=== PATIENT | male | born 1955 | race Caucasian/White ===

== ENCOUNTER 2023-09-30 09:42 | Outpatient (OUT) | payer MEDICARE, SELFPAY ==
[2023-09-30 10:51] LABS: Alanine Aminotransferase 27 U/L (16-63); Albumin Globulin Ratio 1.3; Albumin Level 3.7 g/dL (3.4-5.0); Alkaline Phosphatase 53 U/L (46-116); Anion Gap 13.1; Aspartate Amino Transferase 19 U/L (15-37); BUN Creatinine Ratio 18.8; Bilirubin Total 0.8 mg/dL (0.2-1.0); Carbon Dioxide 26.1 mmol/L (21.0-32.0); Chloride 102 mmol/L (98-107); Chol HDL Ratio 2.5; Cholesterol 167 mg/dL (<=200); Estimated GFR (African America >60 (>=60); Estimated GFR (Non-African Ame >60 (>=60); Free T3 3.05 pg/mL (2.18-3.98); Globulin 2.9 g/dL; Glucose 123 mg/dL (74-106); HDL Cholesterol 66 mg/dL (40-60); Potassium 4.2 mmol/L (3.5-5.1); Sodium 137 mmol/L (136-145); Total Protein 6.6 g/dL (6.4-8.2); Triglycerides 64 mg/dL (<=150); VLDL CHOLESTEROL 12.8 mg/dL
[2023-09-30 10:58] LABS: Basophils Absolute Auto 0.1 10^3/uL (0.0-0.1); Eosinophils Absolute Auto 0.1 10^3/uL (0.0-0.7); Eosinophils Percent Auto 2.2 % (0.9-7.0); Hematocrit 40.6 % (42.0-54.0); Immature Granulocytes Abs Auto 0.01 10^3/uL (0.00-0.03); Immature Granulocytes Pct Auto 0.2 % (0.0-0.5); Lymphocytes Absolute Auto 1.7 10^3/uL (1.2-3.8); Lymphocytes Percent Auto 34.3 % (20.5-60.0); Mean Corpuscular HGB Conc 34.5 g/dL (29.9-35.2); Mean Platelet Volume 11.1 fL (9.5-13.5); Monocytes Absolute Auto 0.4 10^3/uL (0.3-0.8); Monocytes Percent Auto 8.2 % (1.7-12.0); Neutrophils Absolute Auto 2.7 10^3/uL (1.4-6.5); Neutrophils Percent Auto 54.1 % (43.0-75.0); Platelet Count 227 10^3/uL (150-450); Red Blood Count 4.51 10^6/uL (4.70-6.10); Red Cell Distribution Width 12.3 % (11.0-15.0); White Blood Count 4.9 10^3/uL (4.0-11.0)
[2023-09-30 11:31] LABS: Prostate Specific Antigen Scrn 2.09 ng/mL (<=4.00)
[2023-09-30 11:33] LABS: Estimated Average Glucose 117 mg/dL; Glycohemoglobin A1C 5.7 % (4.5-6.2)
== END 2023-09-30 09:43 | disposition home or self-care (01) ==
LOC: LAB 09:46
PROVIDERS: PCP Family Medicine; Visit Provider Family Medicine
DX: E78.5 Hyperlipidemia, unspecified (principal); R73.09 Other abnormal glucose; Z12.5 Encounter for screening for malignant neoplasm of prostate; I10 Essential (primary) hypertension
CPT/HCPCS: 36415; 80053; 80061; 83036; 84436; 84443; 84481; 85025; G0103

== ENCOUNTER 2023-12-16 23:30 | Emergency (ER) | payer MEDICARE, SELFPAY ==
[2023-12-16 23:40] VITALS: BP 169/96; PULSE 68; TEMP 36.5; O2SAT 99; BMI 26.7
--- NOTE | 2023-12-16 23:57 | CT_ITS ---
[address] [address] Patient Name: TYLER DALE MRN: [id number] date: 1955 Sex: M Assigned Patient Location: ER Current Patient Location: Accession/Order Number: [id number] Exam Date: 12/16/2023 23:59 Report Date: 12/17/2023 00:40 At the request of: ATTILA MCLEAN Procedure: CT abdomen pelvis wo con EXAM: CT abdomen pelvis wo con HISTORY: left flank pain, r/o stone COMPARISON: None. TECHNIQUE: CT of the abdomen and pelvis without intravenous contrast. Dose reduction techniques were achieved by using automated exposure control and/or adjustment of mA and/or kV according to patient size and/or use of iterative reconstruction technique. FINDINGS: Limited evaluation of the viscera/organs and vasculature without intravenous contrast. TUBES AND IMPLANTS: None. LOWER CHEST: Small hiatal hernia ABDOMEN and PELVIS ABDOMINAL WALL AND SOFT TISSUES: Unremarkable. BONES: No suspicious lesions. Multilevel degenerative changes of the spine. ARTERIES: Incompletely evaluated. Severe ostial calcifications of the celiac trunk with likely severe stenosis . Poststenotic dilatation measuring 1 centimeter. No aortoiliac aneurysm VEINS: Incompletely evaluated. LYMPH NODES: Unremarkable. PERITONEUM/ RETROPERITONEUM: Unremarkable. BOWEL: No obstruction. Mild diverticulosis APPENDIX: Unremarkable LIVER: No suspicious lesions GALLBLADDER: Multiple layering gallstones without wall thickening or pericholecystic fluid BILE DUCTS: Not dilated SPLEEN: Unremarkable. PANCREAS: Unremarkable. ADRENALS: Unremarkable. KIDNEYS/ URETERS: Moderate left hydronephrosis and hydroureter secondary to a 7 millimeter proximal ureteral stone. Punctate bilateral nonobstructing renal calculi. REPRODUCTIVE ORGANS: Unremarkable URINARY BLADDER: Moderate to severe dilatation of the bladder. CT/CT abdomen pelvis wo con IMPRESSION: 1. Moderate left hydronephrosis and hydroureter secondary to a 7 millimeter proximal ureteral stone. Punctate bilateral nonobstructing renal calculi. 2. Moderate to severe dilatation of the bladder. 3. Cholelithiasis. 4. Mild diverticulosis. 5. [place] ostial calcification of the celiac trunk with likely severe stenosis . Poststenotic dilatation measuring 1 centimeter. 6. Small hiatal hernia. Electronically authenticated by: KARO BERG Date: 12/17/2023 00:40
[2023-12-17 00:15] LABS: Basophils Absolute Auto 0.1 10^3/uL (0.0-0.1); Basophils Percent Auto 0.6 % (0.2-2.0); Eosinophils Absolute Auto 0.1 10^3/uL (0.0-0.7); Eosinophils Percent Auto 0.7 % (0.9-7.0); Hematocrit 39.7 % (42.0-54.0); Hemoglobin 13.7 g/dL (14.0-18.0); Immature Granulocytes Abs Auto 0.03 10^3/uL (0.00-0.03); Immature Granulocytes Pct Auto 0.2 % (0.0-0.5); Lymphocytes Absolute Auto 1.3 10^3/uL (1.2-3.8); Lymphocytes Percent Auto 9.9 % (20.5-60.0); Mean Corpuscular HGB Conc 34.5 g/dL (29.9-35.2); Mean Corpuscular Hemoglobin 31.9 pg (25.9-34.0); Mean Corpuscular Volume 92.3 fL (80.0-94.0); Monocytes Absolute Auto 0.8 10^3/uL (0.3-0.8); Monocytes Percent Auto 6.4 % (1.7-12.0); Neutrophils Absolute Auto 10.5 10^3/uL (1.4-6.5); Neutrophils Percent Auto 82.2 % (43.0-75.0); Platelet Count 209 10^3/uL (150-450); Red Cell Distribution Width 12.5 % (11.0-15.0); White Blood Count 12.7 10^3/uL (4.0-11.0)
--- OUTSIDE RECORDS SUMMARY | 2023-12-17 00:15 | XMS_ITS | CCD ---
Author Organization [facility] Care Team Providers Care Center Administrator Name Role Phone Alejandro Santoro Unavailable JOEY, DR MEHTA Attending Unavailable JOEY, DR MEHTA Consulting Unavailable JOEY, DR MEHTA Primary Care Unavailable JOEY, DR MEHTA Admitting Unavailable JOEY, DR MEHTA Referring Unavailable MILAY, DR MEHTA Attending Unavailable JOEY, DR MEHTA Consulting Unavailable JOEY, DR MEHTA Primary Care Unavailable JOEY, DR MEHTA Admitting Unavailable JOEY, DR MEHTA Attending Unavailable JOEY, DR MEHTA Consulting Unavailable JOEY, DR MEHTA Primary Care Unavailable JOEY, DR MEHTA Admitting Unavailable Medications Current Medications Medication Drug Class(es) Dates Sig (Normalized) Sig (Original) lisinopril 40 mg oral tablet (1 source) Angiotensin Converting Enzyme Inhibitor Lisinopril 40 MG Orally Once a day Active losartan potassium 25 mg oral tablet (1 source) Angiotensin 2 Receptor Joey Losartan Potassium 25 MG Orally Active Problems Active Problems Problem Classification Problem Date Documented Da te Episodic/Chronic Diabetes mellitus without complication (1 source) Other abnormal glucose; Translations: [OTHER ABNORMAL GLUCOSE] Onset: 05-10-2022 Episodic Disorders of lipid metabolism (1 source) Hyperlipidemia, unspecified; Translations: [HYPERLIPIDEMIA UNSPECIFIED] Onset: 05-10-2022 Chronic Essential hypertension (5 sources) Essential (primary) hypertension; Translations: [ESSENTIAL PRIMARY HYPERTENSION] Onset: 05-05-2022 Chronic Other nutritional; endocrine; and metabolic disorders (1 source) Overweight; Translations: [OVERWEIGHT] Onset: 05-10-2022 Episodic Other screening for suspected conditions (not mental disorders or infectious disease) (6 sources) Encounter for screening for malignant neoplasm of rectum; Translations: [Encounter for screening for malignant neoplasm of prostate] Onset: 05-06-2022 Episodic Unclassified (3 sources) CONTACT W/AND (SUSP) EXPOS COVID-19; Translations: [CONTACT W/AND (SUSP) EXPOS COVID-19] Onset: 07-03-2021 Past or Other Problems Problem Classification Problem Date Documented Da te Episodic/Chronic Sprains and strains (1 source) Strain of muscle, fascia and tendon of other parts of biceps, right arm, initial encounter Onset: 03-28-2021 Resolved: 03-28-2021 Episodic Unclassified (1 source) CONTACT W/AND (SUSP) EXPOS COVID-19; Translations: [CONTACT W/AND (SUSP) EXPOS COVID-19] Onset: 07-01-2021 Results Test Name Value Interpretation Reference Range Facil ity INSULINon 05-06-2022 Insulin 17.3 uIU/mL Normal 2.6-24.9 [facility] Comment on above: Performed By: #### I NSULIN #### [facility] [address] [place] [address] Dr. Carleen Garvey CBC AUTO DIFFon 05-05-2022 BASO # 0.1 103/ul Normal 0.0-0.1 [facility] Comment on above: Performed By: #### C BC #### [facility] [address] [place] [address] Dr. Carleen Garvey Basophils/100 WBC (Bld) 1.0 % Normal 0.2-2.0 [facility] Comment on above: Performed By: #### C BC #### [facility] [address] [place] [address] Dr. Carleen Garvey EO # 0.3 103/ul Normal 0.0-0.7 [facility] Comment on above: Performed By: #### C BC #### [facility] [address] [place] [address] Dr. Carleen Garvey Eosinophils/100 WBC (Bld) 4.9 % Normal 0.9-7.0 [facility] Comment on above: Performed By: #### C BC #### [facility] [address] [place] [address] Dr. Carleen Garvey Erythrocyte distribution width (RBC) [Ratio] 12.6 % Normal 11.0-15.0 [facility] Comment on above: Performed By: #### C BC #### [facility] [address] [place] [address] Dr. Carleen Garvey Hematocrit (Bld) [Volume fraction] 42.7 % Normal 42.0-54.0 [facility] Comment on above: Performed By: #### C BC #### [facility] [address] [place] [address] Dr. Carleen Garvey Hemoglobin (Bld) [Mass/Vol] 14.7 g/dL Normal 14.0-18.0 [facility] Comment on above: Performed By: #### C BC #### [facility] [address] [place] [address] Dr. Carleen Garvey IG # 0.01 10e3/ul Normal 0.00-0.03 [facility] Comment on above: Performed By: #### C BC #### [facility] [address] [place] [address] Dr. Carleen Garvey IG % 0.2 % Normal 0.0-0.5 [facility] Comment on above: Performed By: #### C BC #### [facility] [address] [place] [address] Dr. Carleen Garvey LYMPH # 1.6 103/ul Normal 1.2-3.8 [facility] Comment on above: Performed By: #### C BC #### [facility] [address] [place] [address] Dr. Carleen Garvey Lymphocytes/100 WBC (Bld) 29.5 % Normal 20.5-60.0 [facility] Comment on above: Performed By: #### C BC #### [facility] [address] [place] [address] Dr. Carleen Garvey MANUAL DIFF REQ NO Normal [facility] Comment on above: Performed By: #### C BC #### [facility] [address] [place] [address] Dr. Carleen Garvey MCH (RBC) [Entitic mass] 30.5 pg Normal 25.9-34.0 [facility] Comment on above: Performed By: #### C BC #### [facility] [address] [place] [address] Dr. Carleen Garvey MCHC (RBC) [Mass/Vol] 34.4 g/dL Normal 29.9-35.2 [facility] Comment on above: Performed By: #### C BC #### [facility] [address] [place] [address] Dr. Carleen Garvey MCV (RBC) [Entitic vol] 88.6 fL Normal 80.0-94.0 [facility] Comment on above: Performed By: #### C BC #### [facility] [address] [address] [address] Carleen Garvey MONO # 0.5 103/ul Normal 0.3-0.8 [facility] Comment on above: Performed By: #### C BC #### [facility] [address] [place] [address] Dr. Carleen Garvey Monocytes/100 WBC (Bld) 9.7 % Normal 1.7-12.0 [facility] Comment on above: Performed By: #### C BC #### [facility] [address] [place] [address] Dr. Carleen Garvey NEUT # 2.9 103/ul Normal 1.4-6.5 [facility] Comment on above: Performed By: #### C BC #### [facility] [address] [place] [address] Dr. Carleen Garvey Neutrophils/100 WBC (Bld) 54.7 % Normal 43.0-75.0 [facility] Comment on above: Performed By: #### C BC #### [facility] [address] [place] [address] Dr. Carleen Garvey Platelet mean volume (Bld) [Entitic vol] 10.3 fL Normal 9.5-13.5 [facility] Comment on above: Performed By: #### C BC #### [facility] [address] [place] [address] Dr. Carleen Garvey PLT 258 103/ul Normal 150-450 [facility] Comment on above: Performed By: #### C BC #### [facility] [address] [place] [address] Dr. Carleen Garvey RBC 4.82 106/ul Normal 4.70-6.10 [facility] Comment on above: Performed By: #### C BC #### [facility] [address] [address] [address] Carleen Garvey WBC 5.3 103/ul Normal 4.0-11.0 [facility] Comment on above: Performed By: #### C BC #### [facility] [address] [address] [address] Carleen Garvey GLYCOHEMOGLOBIN A1Con 2021 ADA RECOMMENDATION SEE BELOW Normal [facility] Comment on above: Result Comment: ADA RECOMMENDED LIMIT 4.0 - 6.0 ADA THERAPEUTIC TARGET < 7.0 ACTION SUGGESTED > 7.0 Performed By: #### A 1C #### [facility] [address] [place] [address] Dr. Carleen Garvey Glucose [Mass/Vol] 114 mg/dL Normal [facility] Comment on above: Performed By: #### A 1C #### [facility] [address] [place] [address] Dr. Carleen Garvey HbA1c (Bld) [Mass fraction] 5.6 % Normal 4.5-6.2 [facility] Comment on above: Performed By: #### A 1C #### [facility] [address] [place] [address] Dr. Carleen Garvey LIPID PROFILEon 05-05-2022 CHOL-HDL RATIO NORM SEE BELOW Normal [facility] Comment on above: Result Comment: 3.3 - 4.4 LOW RISK 4.4 - 7.1 AVERAGE RISK 7.1 - 11.0 MODERATE RISK >11.0 HIGH RISK Performed By: #### C MP, URIC, LIPID #### [facility] [address] [address] [address] Carleen Garvey Cholesterol [Mass/Vol] 172 mg/dL Normal <=200 [facility] Comment on above: Performed By: #### C MP, URIC, LIPID #### [facility] [address] [place] [address] Dr. Carleen Garvey Cholesterol in HDL [Mass/Vol] 61 mg/dL Critically high 40-60 [facility] Comment on above: Performed By: #### C MP, URIC, LIPID #### [facility] [address] [address] [address] Carleen Garvey Cholesterol in LDL [Mass/Vol] 83.4 mg/dL Normal [facility] Comment on above: Performed By: #### C MP, URIC, LIPID #### [facility] [address] [address] [address] Carleen Garvey Cholesterol.total/Cho lesterol in HDL [Mass ratio] 2.8 {ratio} Normal [facility] Comment on above: Performed By: #### C MP, URIC, LIPID #### [facility] [address] [address] [address] Carleen Garvey HDL NORMAL > or = 60 mg/dl - LOW CARDIOVASCULAR RISK <40 mg/dl - HIGH CARDIOVASCULAR RISK Normal [facility] Comment on above: Performed By: #### C MP, URIC, LIPID #### [facility] [address] [address] [address] Carleen Garvey LDL CALC NORMAL SEE BELOW Normal [facility] Comment on above: Result Comment: <100 mg/dl OPTIMAL 100 - 129 mg/dl NEAR OR ABOVE OPTIMAL 130 - 159 mg/dl BORDERLINE HIGH 160 - 189 mg/dl HIGH >190 mg/dl VERY HIGH Performed By: #### C MP, URIC, LIPID #### [facility] [address] [address] [address] Carleen Garvey Triglyceride [Mass/Vol] 138 mg/dL Normal <=150 [facility] Comment on above: Performed By: #### C MP, URIC, LIPID #### [facility] [address] [address] [address] Carleen Garvey VLDL CALC 27.6 mg/dL Normal [facility] Comment on above: Performed By: #### C MP, URIC, LIPID #### [facility] [address] [address] [address] Carleen Garvey OCC BLD IMMUNO SCREENon 04-24 OCCULT BLOOD Negative Normal NEGATIVE [facility] Comment on above: Performed By: #### O BSCRN #### [facility] [address] [address] [address] Carleen Garvey PROF 14(COMP METB)on 022 Albumin [Mass/Vol] 3.9 g/dL Normal 3.4-5.0 [facility] Comment on above: Performed By: #### C MP, URIC, LIPID #### [facility] [address] [address] [address] Carleen Garvey Albumin/Globulin [Mass ratio] 1.2 {ratio} Normal [facility] Comment on above: Performed By: #### C MP, URIC, LIPID #### [facility] [address] [address] [address] Carleen Garvey ALP [Catalytic activity/Vol] 54 U/L Normal 46-116 [facility] Comment on above: Performed By: #### C MP, URIC, LIPID #### [facility] [address] [place] [address] Dr. Carleen Garvey ALT [Catalytic activity/Vol] 24 U/L Normal 16-63 [facility] Comment on above: Performed By: #### C MP, URIC, LIPID #### [facility] [address] [address] [address] Carleen Garvey Anion gap [Moles/Vol] 13.4 mmol/L Normal [facility] Comment on above: Performed By: #### C MP, URIC, LIPID #### [facility] [address] [address] [address] Carleen Garvey AST [Catalytic activity/Vol] 18 U/L Normal 15-37 [facility] Comment on above: Performed By: #### C MP, URIC, LIPID #### [facility] [address] [address] [address] Carleen Garvey Bilirubin [Mass/Vol] 0.6 mg/dL Normal 0.2-1.0 [facility] Comment on above: Performed By: #### C MP, URIC, LIPID #### [facility] [address] [address] [address] Carleen Garvey Calcium [Mass/Vol] 8.9 mg/dL Normal 8.5-10.1 [facility] Comment on above: Performed By: #### C MP, URIC, LIPID #### [facility] [address] [address] [address] Carleen Garvey Chloride [Moles/Vol] 101 mmol/L Normal 98-107 [facility] Comment on above: Performed By: #### C MP, URIC, LIPID #### [facility] [address] [address] [address] Carleen Garvey CO2 [Moles/Vol] 26.1 mmol/L Normal 21.0-32.0 [facility] Comment on above: Performed By: #### C MP, URIC, LIPID #### [facility] [address] [address] [address] Carleen Garvey Creatinine [Mass/Vol] 1.20 mg/dL Normal 0.70-1.30 [facility] Comment on above: Performed By: #### C MP, URIC, LIPID #### [facility] [address] [address] [address] Carleen Garvey EGFR-AF IRISH >60 Normal >=60 [facility] Comment on above: Performed By: #### C MP, URIC, LIPID #### [facility] [address] [address] [address] Carleen Garvey EGFR-NON AF IRISH =60 Normal >=60 [facility] Comment on above: Performed By: #### C MP, URIC, LIPID #### [facility] [address] [address] [address] Carleen Garvey Globulin (S) [Mass/Vol] 3.3 g/dL Normal [facility] Comment on above: Performed By: #### C MP, URIC, LIPID #### [facility] [address] [address] [address] Carleen Garvey Glucose [Mass/Vol] 125 mg/dL Critically high 74-106 [facility] Comment on above: Performed By: #### C MP, URIC, LIPID #### [facility] [address] [address] [address] Carleen Garvey Potassium [Moles/Vol] 4.5 mmol/L Normal 3.5-5.1 [facility] Comment on above: Performed By: #### C MP, URIC, LIPID #### [facility] [address] [place] [address] Dr. Carleen Garvey Protein [Mass/Vol] 7.2 g/dL Normal 6.4-8.2 [facility] Comment on above: Performed By: #### C MP, URIC, LIPID #### [facility] [address] [place] [address] Dr. Carleen Garvey Sodium [Moles/Vol] 136 mmol/L Normal 136-145 [facility] Comment on above: Performed By: #### C MP, URIC, LIPID #### [facility] [address] [place] [address] Dr. Carleen Garvey Urea nitrogen [Mass/Vol] 20.0 mg/dL Critically high 7.0-18.0 [facility] Comment on above: Performed By: #### C MP, URIC, LIPID #### [facility] [address] [place] [address] Dr. Carleen Garvey Urea nitrogen/Creatinine [Mass ratio] 16.7 mg/mg Normal [facility] Comment on above: Performed By: #### C MP, URIC, LIPID #### [facility] [address] [place] [address] Dr. Carleen Garvey URIC ACID SERUMon 05-05-2022 Urate [Mass/Vol] 6.9 mg/dL Normal 3.5-7.2 [facility] Comment on above: Performed By: #### C MP, URIC, LIPID #### [facility] [address] [place] [address] Dr. Carleen Garvey [facility]on SARS-CoV-2 (COVID-19) RNA JOHANNY+probe Ql (Unsp spec) Not detected Normal NOT DETECTED [facility] Comment on above: Result Comment: This test is not yet approved or cleared by the [place] FDA. When there are no FDA-approved or cleared tests available, and other criteria are met, FDA can make tests available under an emergency access mechanism called an Emergency Use Authorization (EUA). The EUA for this test is supported by the [employer] Associate of Health and Human Service's (HHS's) declaration that circumstances exist to justify the emergency use of in vitro diagnostics for the detection and/or diagnosis of the virus that causes COVID-19. This EUA will remain in effect (meaning this test can be used) for the duration of the COVID-19 declaration justifying emergency of IVDs, unless it is terminated or revoked by FDA (after which the test may no longer be used). When diagnostic testing is negative, the possibility of a false negative should be considered in the context of a patient's recent exposures and the presence of clinical signs and symptoms consistent with SARS-CoV-2. Performed By: #### C [facility] #### [facility] [address] [place] [address] Dr. Carleen Garvey Vital Signs Date Time Vital Sign Value Performing Clinician Faci lity 03-28-2021 16:30-0400 Body height 182.88 cm Alejandro Santoro Other [facility] Other 03-28-2021 16:30-0400 Body mass index (BMI) [Ratio] 28.26 kg/m2 Alejanrdo Santoro Other [facility] Other 03-28-2021 16:30-0400 Body weight 94.53 kg Alejandro Santoro Other [facility] Other Encounters Encounter Date Encounter Type Care Provider Facility Start: 05-06-2022 End: 05-06-[address] JANINE COOK Facility:[facility] Start: 05-05-2022 End: 05-06-[address] JANINE COOK Facility:[facility] Start: 07-01-2021 End: 07-01-[address] JANINE COOK Facility:[facility] Start: 03-28-2021 End: 03-28-2021 ambulatory Alejandro Santoro Other [facility] Other Start: 03-28-2021 Office outpatient ne w 30 minutes Alejandro Santoro [facility] Procedures Date Procedure Procedure Detail Performing Clinician Start: 05-05-[address] DANII COOK Comment on above: Performed By: #### P [facility] #### [facility] [address] [address] [address] Carleen Garvey Payers Date Payer Category Payer Medicare [id number] 1955 Unknown [id number] [id number] [id number] 1955 Unknown [id number] [id number] [id number] 1955 Unknown [id number] [id number] Medicare [id number] 2.1 [id number] Unknown [id number] 2. [id number] Social History Date Type Detail Facility Unknown if ever smoked [facility] Other Sex Assigned At Sex Assigned At Bir th [facility] Other Evaluation note 03-28-2021 Note Date & Type Note Facility 03-28-2021 Evaluation note Encounter Date Diagnosis Assessment Notes Mar, Traumatic partial tear of right biceps tendon, initial encounter (ICD-10 - S46.211A) Patient instructed on gentle motion and strength exercises. No heavy lifting. Progess as tolerates. 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 He is functioning well at this time without significant pain. We discussed gentle range of motion exercises. [facility] Other History general Narrative - Reported Note Date & Type Note Facility History general Narrative - Reported Type Medical History Hypercholesterolemia Medical History Benign essential HTN Surgical History tonsillectomy Surgical History colonoscopy [facility] Other Summary Purpose Family History No Family History Records Found Advance Directives No Advanced Directives Records Found Additional Source Comments REASON FOR VISIT (unrecogniz ed section and content) Right Elbow Pain (unrecognized sect ion and content) No Status Records Found INFORMATION SOURCE (unrecogn ized section and content) DATE CREATED AUTHOR 05/16/[address] [facility] FOR RECORDS PERTAINING TO PATIENTS WHO ARE OR HAVE BEEN ENROLLED IN A CHEMICAL DEPENDENCY/SUBSTANCEABUSE PROGRAM, SOME INFORMATION MAY BE OMITTED. This clinical summary was aggregated from multiple sources. Caution should be exercised in using it in the provision of clinical care. This summary normalizes information from multiple sources, and as a consequence, information in this document may materially change the coding, format and clinical context of patient data. In addition, data may be omitted in some cases. CLINICAL DECISIONS SHOULD BE BASED ON THE PRIMARY CLINICAL RECORDS. [facility]. provides no warranty or guarantee of the accuracy or completeness of information in this document.
[2023-12-17 00:24] LABS: BUN Creatinine Ratio 15.6; Calcium 8.8 mg/dL (8.5-10.1); Carbon Dioxide 28.3 mmol/L (21.0-32.0); Chloride 103 mmol/L (98-107); Estimated GFR (African America >60 (>=60); Estimated GFR (Non-African Ame 52 (>=60); Glucose 145 mg/dL (74-106); Potassium 4.3 mmol/L (3.5-5.1); Sodium 141 mmol/L (136-145)
--- NOTE | 2023-12-17 00:45 | PC.NURSE ---
Pt. bladder scanned for greater then 1200, Dr. Javed notified. Moody catheter placed using sterile technique per Verbal order by Dr. Javed. Pt. tolerated well, 1400 of dark yellow urine drained.
--- NOTE | 2023-12-17 00:53 | ED.GENADUL1 ---
HPI HPI - General Adult General Chief complaint: Abdominal Pain Stated complaint: FLANK PAIN Time Seen by Provider: 12/16/23 23:36 Source: patient Mode of arrival: walk-in Limitations: no limitations History of Present Illness HPI narrative: 68-year-old male presents for left flank pain. He had a few days ago and then it went away and then it came back. He was nauseous and vomited. No dysuria or hematuria. He has never had a kidney stone. The pain comes and goes and it has been moderate. No trauma or and the pain does not radiate into his legs. Related Data Previous Rx's ?Medication ?Instructions ?Recorded cephalexin 500 mg capsule 500 mg PO TID 7 days #21 caps 12/17/23 tamsulosin 0.4 mg capsule (Flomax) 0.4 mg PO DAILY #7 caps 12/17/23 Allergies Allergy/AdvReac Type Severity Reaction Status Date / Time No Known Drug Allergies Allergy Verified 12/16/23 23:43 Opioid HPI Opioid Management Most Recent Opioid Data: Last Pain Scale 10 12/16/23 23:48 Last ED Pain Assessment 12/16/23 23:48 Review of Systems ROS Narrative A ten point review of systems is negative except as noted above. Exam Narrative Exam Narrative: Nurses note and vital signs reviewed and patient is not hypoxic. General: The patient appears well and in no apparent distress. Patient is resting comfortably on cart. Skin: Warm, dry, no pallor noted. There is no rash noted. Head: Normocephalic, atraumatic Eye: Normal conjunctiva, no drainage Ears, Nose, Mouth, and Throat: oral mucosa is moist. Nares patent. Cardiovascular: Regular Rate and Rhythm Respiratory: Patient is in no distress, no accessory muscle use, lungs are clear to auscultation, no wheezing, rales or rhonchi Back: non-tender, no CVA tenderness bilaterally to percussion. GI: Soft, mild distention Musculoskeletal: The patient has no evidence of calf tenderness, no pitting edema, symmetrical pulses noted bilaterally Neurological: A&O, normal speech Psychiatric: Cooperative Constitutional Vital Signs, click to edit/add: Last Vital Signs Temp 97.7 F 12/16/23 23:40 Pulse 68 12/16/23 23:40 Resp 18 12/16/23 23:40 BP 169/96 H 12/16/23 23:40 Pulse Ox 99 07/24/24 23:40 O2 Del Method Room Air 12/16/23 23:48 Course Vital Signs Vital signs: Vital Signs Temperature 97.7 F 12/16/23 23:40 Pulse Rate 68 12/16/23 23:40 Respiratory Rate 18 12/16/23 23:40 Blood Pressure 169/96 H 12/16/23 23:40 Pulse Oximetry 99 12/16/23 23:40 Oxygen Delivery Method Room Air 12/16/23 23:40 Temperature 97.7 F 12/16/23 23:40 Pulse Rate 68 12/16/23 23:40 Respiratory Rate 18 12/16/23 23:40 Blood Pressure 169/96 H 12/16/23 23:40 Pulse Oximetry 99 12/16/23 23:40 Oxygen Delivery Method Room Air 12/16/23 23:48 Medical Decision Making MDM Narrative Medical decision making narrative: The patient was found to have a 7 mm proximal ureteral stone. He has not required any pain medication. He was also noted to have a greatly distended bladder and when his catheter was placed he had over 1200 mL of urine in it. He is being discharged home on Flomax and Keflex and was referred to urology for appropriate follow-up. At this point he does not require admission to the hospital. Treatment diagnosis and follow-up were discussed with the patient. Differential Diagnosis Differential Diagnosis: Kidney stone, hydronephrosis, hydroureter, UTI Lab Data Lab results reviewed: Yes I reviewed the patient's lab results Labs: Lab Results 12/17/23 12/17/23 Range/Units 00:00 00:45 WBC 12.7 H (4.0-11.0) 10^3/uL RBC 4.30 L (4.70-6.10) 10^6/uL Hgb 13.7 L (14.0-18.0) g/dL Hct 39.7 L (42.0-54.0) % MCV 92.3 (80.0-94.0) fL MCH 31.9 (25.9-34.0) pg MCHC 34.5 (29.9-35.2) g/dL RDW 12.5 (11.0-15.0) % Plt Count 209 (150-450) 10^3/uL MPV 11.0 (9.5-13.5) fL Neut % (Auto) 82.2 H (43.0-75.0) % Lymph % (Auto) 9.9 L (20.5-60.0) % [place] % (Auto) 6.4 (1.7-12.0) % Eos % (Auto) 0.7 L (0.9-7.0) % Baso % (Auto) 0.6 (0.2-2.0) % Neut # (Auto) 10.5 H (1.4-6.5) 10^3/uL Lymph # (Auto) 1.3 (1.2-3.8) 10^3/uL [place] # (Auto) 0.8 (0.3-0.8) 10^3/uL Eos # (Auto) 0.1 (0.0-0.7) 10^3/uL Baso # (Auto) 0.1 (0.0-0.1) 10^3/uL Abs Immat Gran (auto) 0.03 (0.00-0.03) 10^3/uL Imm/Tot Granulo (auto) 0.2 (0.0-0.5) % Sodium 141 (136-145) mmol/L Potassium 4.3 (3.5-5.1) mmol/L Chloride 103 (98-107) mmol/L Carbon Dioxide 28.3 (21.0-32.0) mmol/L Anion Gap 14.0 BUN 21.0 H (7.0-18.0) mg/dL Creatinine 1.35 H (0.70-1.30) mg/dL Est GFR ( Amer) >60 (>=60) Est GFR (Non-Af Amer) 52 L (>=60) BUN/Creatinine Ratio 15.6 Glucose 145 H (74-106) mg/dL Calcium 8.8 (8.5-10.1) mg/dL Urine Color Lt. yellow (YELLOW) Urine Clarity Clear (CLEAR) Urine pH 7.0 (5.0-9.0) Ur Specific [place] 1.015 (1.005-1.025) Urine Protein Negative (NEG/TRACE) mg/dL Urine Glucose (UA) Negative (NEGATIVE) mg/dL Urine Ketones Negative (NEGATIVE) mg/dL Urine Occult Blood Small A (NEGATIVE) Urine Nitrite Negative (NEGATIVE) Urine Bilirubin Negative (NEGATIVE) Urine Urobilinogen 0.2 (0.2-1.0) EU/dL Ur Leukocyte Esterase Negative (NEGATIVE) Urine RBC 10-20 A (0-2) #/HPF Urine WBC 2-5 A (NONE SEEN) #/HPF Ur Squamous Epith Cells Rare (NONE/RARE) #/LPF Urine Crystals None seen (None Seen) #/HPF Urine Bacteria None seen (NONE SEEN) #/HPF Urine Casts None seen (NONE SEEN) #/LPF Urine Mucus None seen (NONE SEEN) Ur Culture Indicated? No Imaging Data CT scan - abdomen: Radiologist's impression: ITS Impressions Abdomen/Pelvis CT 12/16/23 23:57 IMPRESSION: 1. Moderate left hydronephrosis and hydroureter secondary to a 7 millimeter proximal ureteral stone. Punctate bilateral nonobstructing renal calculi. 2. Moderate to severe dilatation of the bladder. 3. Cholelithiasis. 4. Mild diverticulosis. 5. [place] ostial calcification of the celiac trunk with likely severe stenosis . Poststenotic dilatation measuring 1 centimeter. 6. Small hiatal hernia. Electronically authenticated by: KARO BERG Date: 12/17/2023 00:40 Discharge Plan Discharge Stand Alone Forms: Portal Instructions Chief Complaint: Abdominal Pain Clinical Impression: Kidney stone, Urinary retention Patient Disposition: Home, Self-Care Time of Disposition Decision: 01:27 Condition: Good Mode of Transportation: Private Vehicle Prescriptions / Home Meds: New tamsulosin [Flomax] 0.4 mg capsule 0.4 mg PO DAILY Qty: 7 0RF cephalexin 500 mg capsule 500 mg PO TID 7 Days Qty: 21 0RF Print Language: Armenian Instructions: Kidney Stones (ED), Urinary Retention in Men (ED), Moody Catheter Placement and Care (ED), How to Strain Your Urine (ED), How to Change a Catheter Drainage Bag (DC) Referrals: Chris Neely MD [Primary Care Provider] - 1 week Carlos Maurice MD [Physician] - 1 week
[2023-12-17 01:03] LABS: Bilirubin Urine NEGATIVE (NEGATIVE); Blood Urine SMALL (NEGATIVE); Clarity Urine CLEAR (CLEAR); Color Urine LT. YELLOW (YELLOW); Glucose Urine UA NEGATIVE (NEGATIVE); Ketones Urine NEGATIVE (NEGATIVE); Leukocyte Esterase Urine NEGATIVE (NEGATIVE); Nitrite Urine NEGATIVE (NEGATIVE); Protein Urine NEGATIVE (NEG/TRACE); Specific Gravity Urine 1.015 (1.005-1.025); Urobilinogen Urine 0.2 EU/dL (0.2-1.0)
[2023-12-17 01:15] LABS: Bacteria Urine NONE SEEN #/HPF (NONE SEEN); Cast Seen? NONE SEEN #/LPF (NONE SEEN); Crystals Seen? None Seen #/HPF (None Seen); Mucus Urine NONE SEEN (NONE SEEN); Squamous Epithelial Cell Urine RARE #/LPF (NONE/RARE); Urine Culture Indicated NO
[2023-12-17 01:49] VITALS: BP 141/81; PULSE 75; O2SAT 97
== END 2023-12-17 01:51 | disposition home or self-care (01) ==
PROVIDERS: Emergency Provider Emergency Medicine; PCP Family Medicine
DX: N13.2 Hydronephrosis with renal and ureteral calculous obstruction (principal); R33.9 Retention of urine, unspecified
CPT/HCPCS: 36415; 51702; 74176; 80048; 81001; 85025; 99284

== ENCOUNTER 2024-01-04 13:26 | Outpatient (OUT) | payer MEDICARE, SELFPAY ==
--- NOTE | 2024-01-04 13:36 | ECG_ITS ---
The [facility] Test Date: 2024-01-04 Pat Name: TYLER DALE Department: Room: - Gender: Male Can Operator: : 1955 Requested By: [id number] Order Number: [id number] Reading MD: SALMA BRAXTON Measurements Intervals [place] Rate: 80 P: 52 HI: 160 QRS: -40 QRSD: 96 T: 45 QT: 366 QTc: 424 Interpretive Statements SINUS RHYTHM MARKED LEFT AXIS DEVIATION [QRS AXIS < -30] Compared to ECG 09/01/2016 14:38:04 No significant changes Electronically Signed On 01-06-2024 22:07:18 EDT by SALMA BRAXTON
[2024-01-04 14:14] LABS: Basophils Absolute Auto 0.1 10^3/uL (0.0-0.1); Basophils Percent Auto 0.6 % (0.2-2.0); Eosinophils Absolute Auto 0.1 10^3/uL (0.0-0.7); Eosinophils Percent Auto 1.2 % (0.9-7.0); Hematocrit 39.7 % (42.0-54.0); Hemoglobin 13.7 g/dL (14.0-18.0); Immature Granulocytes Abs Auto 0.01 10^3/uL (0.00-0.03); Immature Granulocytes Pct Auto 0.1 % (0.0-0.5); Lymphocytes Absolute Auto 1.9 10^3/uL (1.2-3.8); Lymphocytes Percent Auto 23.9 % (20.5-60.0); Mean Corpuscular HGB Conc 34.5 g/dL (29.9-35.2); Mean Corpuscular Hemoglobin 31.4 pg (25.9-34.0); Mean Corpuscular Volume 90.8 fL (80.0-94.0); Mean Platelet Volume 10.6 fL (9.5-13.5); Monocytes Absolute Auto 0.5 10^3/uL (0.3-0.8); Monocytes Percent Auto 6.4 % (1.7-12.0); Neutrophils Absolute Auto 5.3 10^3/uL (1.4-6.5); Neutrophils Percent Auto 67.8 % (43.0-75.0); Platelet Count 234 10^3/uL (150-450); Red Blood Count 4.37 10^6/uL (4.70-6.10); Red Cell Distribution Width 12.3 % (11.0-15.0); White Blood Count 7.8 10^3/uL (4.0-11.0)
[2024-01-04 14:47] LABS: Anion Gap 13.3; BUN Creatinine Ratio 15.1; Calcium 8.6 mg/dL (8.5-10.1); Carbon Dioxide 26.8 mmol/L (21.0-32.0); Chloride 101 mmol/L (98-107); Estimated GFR (African America >60 (>=60); Estimated GFR (Non-African Ame >60 (>=60); Glucose 103 mg/dL (74-106); Potassium 4.1 mmol/L (3.5-5.1); Sodium 137 mmol/L (136-145)
== END 2024-01-04 13:27 | disposition home or self-care (01) ==
LOC: PST 13:27
PROVIDERS: PCP Family Medicine; Visit Provider Urology
DX: Z01.810 Encounter for preprocedural cardiovascular examination (principal); Z01.812 Encounter for preprocedural laboratory examination; N13.2 Hydronephrosis with renal and ureteral calculous obstruction
CPT/HCPCS: 80048; 85025; 93005

== ENCOUNTER 2024-01-11 08:47 | Outpatient (OUT) | payer MEDICARE, SELFPAY ==
--- NOTE | 2024-01-11 08:54 | XR_ITS ---
The [address] [address] Patient Name: TYLER DALE MRN: [id number] date: 1955 Sex: M Assigned Patient Location: [place] Current Patient Location: Accession/Order Number: [id number] Exam Date: 01/11/2024 09:12 Report Date: 01/13/2024 04:24 At the request of: JENN HADLEY Procedure: XR abdomen 1V EXAMINATION: XR abdomen 1V HISTORY: Ureteral Stone, Kidney Stone COMPARISON: Ultrasound kidneys 01/11/2024, CT abdomen pelvis 12/17/2023 FINDINGS: KIDNEY/URETER - RIGHT: No visible renal or ureteral calcifications. KIDNEY/URETER - LEFT: No visible renal or ureteral calcifications. PELVIS: No visible ureteral stones. BOWEL: No abnormal dilation or deviation. BONES: No acute abnormality. OTHER: Negative. No abnormal gaseous collections. XR/XR abdomen 1V IMPRESSION: 1. No visible urinary tract calculi. The 6 mm stone described within the left kidney on same day ultrasound and the stone within the left ureter seen on prior CT study are not visible on today's abdominal radiograph. 2. Evaluation is limited by dense overlying bowel content. Electronically authenticated by: NOHEMI LERMA Date: 01/13/2024 04:24
--- NOTE | 2024-01-11 08:54 | US_ITS ---
The [address] [address] Patient Name: TYLER DALE MRN: [id number] date: 1955 Sex: M Assigned Patient Location: [place] Current Patient Location: Accession/Order Number: [id number] Exam Date: 01/11/2024 08:55 Report Date: 01/11/2024 14:28 At the request of: JENN HADLEY Procedure: US renal BI Ultrasound kidneys, bilateral HISTORY: Ureteral Stone, Kidney Stone COMPARISON: CT 12/17/2023 TECHNIQUE: Transabdominal ultrasound imaging of both kidneys was performed. FINDINGS: Both kidneys demonstrate normal echotexture and echogenicity. The right kidney measures 10.3 x 6.0 x 4.8 cm. There is no hydronephrosis of right kidney. The left kidney measures 11.9 x 4.8 x 4.9 cm. There is a nonobstructing stone at the lower pole measuring 6 x 5 mm. No hydronephrosis of left kidney. The bladder is decompressed with Moody catheter and not evaluated. US/US renal BI IMPRESSION: 1. Normal size kidneys without hydronephrosis. 2. Nonobstructing 6 mm left lower pole renal stone. 3. Bladder decompressed by Moody. Electronically authenticated by: ANETA HADLEY Date: 01/11/2024 14:28
--- OUTSIDE RECORDS SUMMARY | 2024-01-11 09:02 | XMS_ITS | CCD ---
Author Organization [facility] Care Team Providers Care Manager In Home Name Role Phone Alejandro Santoro Unavailable DR JANINE NEELY Attending Unavailable HOY, DR MEHTA Consulting Unavailable MILAY, DR MEHTA Primary Care Unavailable MILAY, DR MEHTA Admitting Unavailable JOEY, DR MEHTA Referring Unavailable MILAY, DR MEHTA Attending Unavailable HOY, DR MEHTA Consulting Unavailable JOEY, DR MEHTA Primary Care Unavailable JOEY, DR MEHTA Admitting Unavailable JOEY, DR MEHTA Attending Unavailable MILAY, DR MEHTA Consulting Unavailable JOEY, DR MEHTA Primary Care Unavailable JOEY, DR MEHTA Admitting Unavailable Janine Neely Primary Care Physician Frida Alfaro Attending Unavailable Frida Alfaro Attending Unavailable Frida Alfaro Attending Unavailable Unavailable Primary Care Provider Unavailabl e Medications Current Medications Medication Drug Class(es) Dates Sig (Normalized) Sig (Original) losartan potassium 25 mg oral tablet (1 source) Angiotensin 2 Receptor Joey Losartan Potassium 25 MG Orally Active tamsulosin hydrochloride 0.4 mg oral capsule (1 source) alpha-Adrenergic Joey Start: 12-30-2023 take 1 capsule by mouth once daily tamsulosin 0.4 mg Cap 0.4 mg = 1 cap(s), Oral, Daily, # 30 cap(s), Refills(s) 11, Pharmacy: [facility]/pharmacy #[id number], 184, cm, 12/30/23 8:36:00 EDT, Height/Length Dosing, 86, kg, 12/30/23 8:36:00 EDT, Weight Dosing Start Date: 12/30/23 Status: Ordered Completed/Discontinued Medications Medication Drug Class(es) Dates Sig (Normalized) Sig (Original) lisinopril 40 mg oral tablet (2 sources) Angiotensin Converting Enzyme Inhibitor Start: 12-30-2023 take 1 tablet by mouth once daily lisinopril 40 mg Tab 40 mg = 1 tab(s), Oral, Daily, TAKE 1 TABLET BY MOUTH EVERY DAY FOR 90 DAYS Start Date: 12/30/23 Status: Ordered Lisinopril 40 MG Orally Once a day Active Problems Active Problems Problem Classification Problem Date Documented Date Episodic/Chronic Calculus of urinary tract (3 sources) Kidney stone; Translations: [Calculus of kidney] Onset: 12-30-2023 Episodic Diabetes mellitus without complication (1 source) Other abnormal glucose; Translations: [OTHER ABNORMAL GLUCOSE] Onset: 05-10-2022 Episodic Disorders of lipid metabolism (1 source) Hyperlipidemia, unspecified; Translations: [HYPERLIPIDEMIA UNSPECIFIED] Onset: 05-10-2022 Chronic Essential hypertension (6 sources) Essential (primary) hypertension; Translations: [Hypertensive disorder] Onset: 05-05-2022 Chronic Genitourinary symptoms and ill-defined conditions (2 sources) Retention of urine; Translations: [Retention of urine, unspecified] Onset: 12-30-2023 Episodic Hyperplasia of prostate (2 sources) Benign prostatic hypertrophy with outflow obstruction; Translations: [Benign prostatic hyperplasia with lower urinary tract symptoms] Onset: 12-30-2023 Chronic Other diseases of kidney and ureters (1 source) Urinary tract obstruction; Translations: [Hydronephrosis with renal and ureteral calculous obstruction] Onset: 12-30-2023 Episodic Other diseases of kidney and ureters (1 source) Hydronephrosis 12-23-2023 Episodic Other nutritional; endocrine; and metabolic disorders (1 source) Overweight; Translations: [OVERWEIGHT] Onset: 05-10-2022 Episodic Other screening for suspected conditions (not mental disorders or infectious disease) (7 sources) Encounter for screening for malignant neoplasm of rectum; Translations: [Encounter for screening for malignant neoplasm of prostate] Onset: 05-06-2022 Episodic Unclassified (3 sources) CONTACT W/AND (SUSP) EXPOS COVID-19; Translations: [CONTACT W/AND (SUSP) EXPOS COVID-19] Onset: 07-03-2021 Unclassified (1 source) Obstructive hydronephrosis 12-30-2023 Unclassified (1 source) Patient encounter status 12-30-2023 Past or Other Problems Problem Classification Problem Date Documented Da te Episodic/Chronic Sprains and strains (1 source) Strain of muscle, fascia and tendon of other parts of biceps, right arm, initial encounter Onset: 03-28-2021 Resolved: 03-28-2021 Episodic Unclassified (1 source) CONTACT W/AND (SUSP) EXPOS COVID-19; Translations: [CONTACT W/AND (SUSP) EXPOS COVID-19] Onset: 07-01-2021 Results Test Name Value Interpretation Reference Range Facility [facility] SUYAPATYLER Costa ([id number]) 1955 M Date Time Provider Department 01/08/24 SHELBY YOO 4CQ During your visit today, we recorded the following information about you: Naomy Davis 01/08/2024 10:16 AM Signed Tyler is calling Shelby Yoo MD today stating that his Ida Dale .15.[address] is a patient of Dr.. Yoo and wants to ask if she will take him on as a new patient. Please advise. Patient has been identified by name and birthdate. Duration of symptoms: N/A Person calling: self Call patient at: on cell [phone] (home) [phone] (cell) Was an appointment scheduled: No Closing statement: Results or non-symptom based questions: Thank you for calling [facility], your call will be returned within the next business day. Maria Luisa Salazar MA 01/08/2024 10:53 AM Signed Please advise if willing to take spouse of current patient (Ida Dale) Graciela Vazquez PA-C 01/08/2024 11:37 AM Signed Yes, he can establish with Dr. Yoo. Please arrange for establish care visit. If patient has acute concerns please schedule with me for acute visit prior to establish care visit. Thanks, NAPOLEON Quiroz Rebecca 01/08/2024 11:41 AM Signed Patient Scheduled for Establish Care with Shelby Yoo MD on 05/20/24 at 1:00 PM. Allergies As of Date: 01/08/2024 (Not on File) Date Reviewed: Never Reviewed Reason for Visit: Patient Request [[id number]] Problem List As Of Date: 01/08/2024 (None) Encounter Status:Closed by ELIZABETH BOJORQUEZ on 01/08/24 Normal [facility] Ambulatory Visit Summaryon 0 12-30-2023 Ambulatory Visit Summary Ambulatory Visit Summary TYLER DALE :1955 Visit Date:12/30/2023 Ambulatory Visit Instructions Your Diagnosis Ureteral stone with hydronephrosis Kidney stones Urinary retention BPH with urinary obstruction Screening PSA (prostate specific antigen) Tests Performed US Renal -- Results Pending -- XR Abdomen 1 View -- Results Pending -- Please visit your patient portal for your results or contact your primary care physician. Your Care Team Attending Physician - Dominic ALBRIGHT, Frida Malhotra Primary Care Physician - Janine Neely MD This Is Your Medications List tamsulosin (tamsulosin 0.4 mg Cap) Contact prescribing physician if questions or concerns lisinopril (lisinopril 40 mg Tab) Procedures Performed Colonoscopy (2004), Tonsillectomy. Discharge Vitals Temperature (Temporal Artery) 36.6 ?C Heart Rate (Peripheral) 79 Respiratory Rate 16 Blood Pressure 116/72 Height 184 cm Height 72 in Weight 86 kg Weight 189.2 lb BMI 25.4 What to do next You Need to Schedule the Following Appointments Follow Up with Dominic ALBRIGHT, Frida Malhotra, URL, URO When: Where: [address] [place] [address]- [phone] Medications What How Much When Instructions New tamsulosin (tamsulosin 0.4 mg Cap) 1 Capsules By Mouth Every day Refills: 11 Pickup at [facility]/pharmacy #[id number] Unchanged lisinopril (lisinopril 40 mg Tab) 1 Tablets By Mouth Every day TAKE 1 TABLET BY MOUTH EVERY DAY FOR 90 DAYS Contact prescribing physician if questions or concerns Pharmacy Information [facility]/pharmacy #[id number]: [address], [place] [phone] Allergies No Known Allergies Problems Ongoing - Any problem that you are currently receiving treatment for. BPH with urinary obstruction Hydronephrosis Hypertension Kidney stone Kidney stones Screening PSA (prostate specific antigen) Ureteral stone with hydronephrosis Urinary retention Patient Survey You may receive a survey via text or e-mail asking about your office visit. Please share your experience with us by completing your survey. We appreciate your feedback and thank you for choosing us for your care. Education Materials Acute Urinary Retention, Male Acute urinary retention is a condition in which a person is unable to pass urine or can only pass a little urine. This condition can happen suddenly and last for a short time. If left untreated, it can become long-term (chronic) and result in kidney damage or other serious complications. What are the causes? This condition may be caused by: ? Obstruction or narrowing of the tube that drains the bladder (urethra). This may be caused by surgery, problems with nearby organs, or injury to the bladder or urethra. ? Problems with the nerves in the bladder. ? Tumors in the area of the pelvis, bladder, or urethra. ? Certain medicines. ? Bladder or urinary tract infection. ? Constipation. What increases the risk? This condition is more likely to develop in older men. As men age, their prostate may become larger and may start to press or squeeze on the bladder or the urethra. Other chronic health conditions can increase the risk of acute urinary retention. These include: ? Diseases such as multiple sclerosis. ? Spinal cord injuries. ? Diabetes. ? Degenerative cognitive conditions, such as delirium or dementia. ? Psychological conditions. A man may hold his urine due to trauma or because he does not want to use the bathroom. What are the signs or symptoms? Symptoms of this condition include: ? Trouble urinating. ? Pain in the lower abdomen. How is this diagnosed? This condition is diagnosed based on a physical exam and your medical history. You may also have other tests, including: ? An ultrasound of the bladder or kidneys or both. ? Blood tests. ? A urine analysis. ? Additional tests may be needed, such as a CT scan, MRI, and kidney or bladder function tests. How is this treated? Treatment for this condition may include: ? Medicines. ? Placing a thin, sterile tube (catheter) into the bladder to drain urine out of the body. This is called an indwelling urinary catheter. After it is inserted, the catheter is held in place with a small balloon that is filled with sterile water. Urine drains from the catheter into a collection bag outside of the body. ? Behavioral therapy. ? Treatment for other conditions. If needed, you may be treated in the hospital for kidney function problems or to manage other complications. Follow these instructions at home: Medicines ? Take gtgo-kmt-bixseiv and prescription medicines only as told by your health care provider. Avoid certain medicines, such as decongestants, antihistamines, and some prescription medicines. Do not take any medicine unless your health care provider approves. ? If you were prescribed an antibiotic medicin (more content not included)... Normal [facility] Urology Office/Clinic Noteon 12-30-2023 Urology Office/Clinic Note Urology Office/Clinic Note Chief Complaint New patient ED follow up 12/16/23 HPI Staff 68 year old male new patient seen in [place] ER 12/16/23. Pt presented to ER with left flank pain. CT abdomen states moderate left hydronephrosis and hydroureter secondary to a 7 mm proximal ureteral stone. Punctate bilateral obstructing renal calculi. Patient was prescribed cephalexin 500 mg tid x 7 days and tamsulosin 0.4 mg qd x 7 days. Cath was placed. 09/30/23 PSA: 2.09 12/17/23 Creatinine : 1.35, e gFR: 52, BUN:21 09/30/23 A1c: 5.7 Occasionally noticed a little blood in cath bag. denies abdominal pain or flank pain. Denies urgency, frequency. History of Present Illness Tests reviewed: reviewed UA, external records: ER notes and labs, CT scan, PSAs, A1c I have reviewed the previous health record information and history for this patient from external providers. I have reviewed and verified the staff HPI to be accurate for this encounter. Review of Systems PHQ Score Initial Depression Screen Score: 0 SCORE ROS - Provider Constitutional: denies weight loss, denies hot flashes. Eyes: denies eye problems. Gastrointestinal: denies nausea, denies vomiting. Cardiovascular: denies chest pain or angina. Integumentary: no dryness Musculoskeletal: denies musculoskeletal symptoms. ENMT: denies otolaryngeal symptoms. Respiratory: no shortness of breath. Heme/Lymph: denies easy bleeding tendency, denies easy bruising tendency. Psychiatric: no confusion, no anxiety. Genitourinary: See HPI. Physical Exam Vitals & Measurements T: 36.6 ?C(Temporal Artery) HR: 79(Peripheral) RR: 16 BP: 116/72 HT: 72 in HT: 184 cm WT: 86 kg WT: 189.2 lb BMI: 25.4 General Appearance: alert, no distress, well nourished, well developed male. Head: normocephalic . Eyes: normal orbit and globe. ENMT: normal examination of external ears. Chest: symmetric chest rise, respirations non labored. Cardiovascular: regular rate and rhythm. Abdomen: soft, non distended, no tenderness Genitourinary: Flank Pain: none. Bladder: nonpalpable. Skin: warm, dry, no bruising. Psychiatric: cooperative, affect appropriate for age, normal judgement, euthymic mood. Assessment/Plan Tyler is a 68 yo male new pt here for f/u to ER visit due to left proximal ureteral stone with hydro and urinary retention. Not AC. No hx of TN or stroke. ML 22. 1. Ureteral stone with hydronephrosis (N13.2: Hydronephrosis with renal and ureteral calculous obstruction) CT AP wo con 12/16/23 [facility] - Moderate L hydronephrosis and hydroureter secondary to a 7 mm proximal ureteral stone. Renal fxn 12/17/23 - BUN 21, Cr 1.35, GFR 52. Unsure if stone has passed since ER visit. Denies pain radiating. Has occasional back pain at baseline. Has seen some strands of blood in catheter bag. Advised pt he can continue to try to pass stone on own over the next 2-4 wks (has ~30% chance of passing stone) as management options including medical expulsive therapy x 4-6 week vs intervention including extracorporeal shockwave lithotripsy vs ureteroscopy with laser lithotripsy/stone basket extraction possible stent. Risks/benefits of each were discussed including but not limited to: MET- renal damage, pain or infection; ESWL- bleeding, hematoma, pain, infection, inability to break up the stone, ureteral obstruction, cardiac arrhythmias, damage to surrounding structures and need for additional procedures; ureteroscopy - bleeding, pain, infection, damage to surrounding structures, ureteral perforation, stricture, inability to treat the stone and need for additional procedures. If a stent is placed, pt understands this is not permanent and needs to be removed or exchanged within 3 months to prevent encrustation, infection, permanent renal damage and need for more invasive procedures. Pt prefers to tentatively schedule ureteroscopy as he wishes for more definitive removal. -Strain urine -Restart Flomax 0.4mg daily -Increase water intake -Obtain renal US and KUB in 2 weeks, if stone still present, will proceed with definitive treatment. -Will schedule a Cystoscopy with Left Retrograde, Left Ureteroscopy, Left Laser Litho, Left Stone Basket, Left possible stent placement. Risks above. Will order General anesthesia. Pt to call if passes stone prior to procedure date. 2. Kidney stones (N20.0: Calculus of kidney) CT AP wo con 12/16/23 [facility] - Punctate bilateral nonobstructing renal calculi. No hx of kidney stones. -See #1 3. Urinary retention (R33.9: Retention of urine, unspecified) [facility] ER visit 12/16/23 due to L flank pain. CT AP wo con 12/16/23 [facility] - Moderate to severe dilatation of the bladder. Catheter was placed with >1200 mL output. Was discharged with Keflex x7 days and Flomax. UA today shows large blood and small leuks (pt gave sample for catheter bag). Finished abx course and no longer taking Flomax as he was only given a 7-day supply. Denies SEs while on Flomax. No prior urological procedures. Admits (more content not included)... Normal [facility] Comment on above: Result Comment: Elec tronically Signed By: Frida Alfaro MD\.br\Date and Time Signed: 12/30/23 09:24 EDT\.br\Electronically Co-Signed By: Talia Mistry\.br\Date and Time Co-Signed: 12/30/23 09:04 EDT INSULINon 05-06-2022 Insulin 17.3 uIU/mL Normal 2.6-24.[address] [facility] Comment on above: Performed By: #### I NSULIN #### [facility] [address] [address] [address] Carleen Garvey CBC AUTO DIFFon 12-12-2022 BASO # 0.1 103/ul Normal 0.0-0.[address] [facility] Comment on above: Performed By: #### C BC #### [facility] [address] [place] [address] Dr. Carleen Garvey Basophils/100 WBC (Bld) 1.0 % Normal 0.2-2.[address] [facility] Comment on above: Performed By: #### C BC #### [facility] [address] [place] [address] Dr. Carleen Garvey EO # 0.3 103/ul Normal 0.0-0.[address] [facility] Comment on above: Performed By: #### C BC #### [facility] [address] [place] [address] Dr. Carleen Garvey Eosinophils/100 WBC (Bld) 4.9 % Normal 0.9-7.[address] [facility] Comment on above: Performed By: #### C BC #### [facility] [address] [place] [address] Dr. Carleen Garvey Erythrocyte distribution width (RBC) [Ratio] 12.6 % Normal 11.0-15.[address] [facility] Comment on above: Performed By: #### C BC #### [facility] [address] [place] [address] Dr. Carleen Garvey Hematocrit (Bld) [Volume fraction] 42.7 % Normal 42.0-54.[address] [facility] Comment on above: Performed By: #### C BC #### [facility] [address] [place] [address] Dr. Carleen Garvey Hemoglobin (Bld) [Mass/Vol] 14.7 g/dL Normal 14.0-18.[address] [facility] Comment on above: Performed By: #### C BC #### [facility] [address] [place] [address] Dr. Carleen Garvey IG # 0.01 10e3/ul Normal 0.00-0.[address] [facility] Comment on above: Performed By: #### C BC #### [facility] [address] [place] [address] Dr. Carleen Garvey IG % 0.2 % Normal 0.0-0.[address] [facility] Comment on above: Performed By: #### C BC #### [facility] [address] [place] [address] Dr. Carleen Garvey LYMPH # 1.6 103/ul Normal 1.2-3.[address] [facility] Comment on above: Performed By: #### C BC #### [facility] [address] [place] [address] Dr. Carleen Garvey Lymphocytes/100 WBC (Bld) 29.5 % Normal 20.5-60.[address] [facility] Comment on above: Performed By: #### C BC #### [facility] [address] [place] [address] Dr. Carleen Garvey MANUAL DIFF REQ NO Normal [facility] Comment on above: Performed By: #### C BC #### [facility] [address] [place] [address] Dr. Carleen Garvey MCH (RBC) [Entitic mass] 30.5 pg Normal 25.9-34.[address] [facility] Comment on above: Performed By: #### C BC #### [facility] [address] [place] [address] Dr. Carleen Garvey MCHC (RBC) [Mass/Vol] 34.4 g/dL Normal 29.9-35.[address] [facility] Comment on above: Performed By: #### C BC #### [facility] [address] [place] [address] Dr. Carleen Garvey MCV (RBC) [Entitic vol] 88.6 fL Normal 80.0-94.[address] [facility] Comment on above: Performed By: #### C BC #### [facility] [address] [place] [address] Dr. Carleen Garvey MONO # 0.5 103/ul Normal 0.3-0.[address] [facility] Comment on above: Performed By: #### C BC #### [facility] [address] [place] [address] Dr. Carleen Garvey Monocytes/100 WBC (Bld) 9.7 % Normal 1.7-12.[address] [facility] Comment on above: Performed By: #### C BC #### [facility] [address] [address] [address] Carleen Garvey NEUT # 2.9 103/ul Normal 1.4-6.[address] [facility] Comment on above: Performed By: #### C BC #### [facility] [address] [address] [address] Carleen Garvey Neutrophils/100 WBC (Bld) 54.7 % Normal 43.0-75.[address] [facility] Comment on above: Performed By: #### C BC #### [facility] [address] [address] [address] Carleen Garvey Platelet mean volume (Bld) [Entitic vol] 10.3 fL Normal 9.5-13.[address] [facility] Comment on above: Performed By: #### C BC #### [facility] [address] [address] [address] Carleen Garvey PLT 258 103/ul Normal 150-450 [facility] Comment on above: Performed By: #### C BC #### [facility] [address] [address] [address] Carleen Garvey RBC 4.82 106/ul Normal 4.70-6.[address] [facility] Comment on above: Performed By: #### C BC #### [facility] [address] [address] [address] Carleen Garvey WBC 5.3 103/ul Normal 4.0-11.[address] [facility] Comment on above: Performed By: #### C BC #### [facility] [address] [address] [address] Carleen Garvey GLYCOHEMOGLOBIN A1Con 2021 ADA RECOMMENDATION SEE BELOW Normal [facility] Comment on above: Result Comment: ADA RECOMMENDED LIMIT 4.0 - 6.0 ADA THERAPEUTIC TARGET < 7.0 ACTION SUGGESTED > 7.0 Performed By: #### A 1C #### [facility] [address] [address] [address] Carleen Garvey Glucose [Mass/Vol] 114 mg/dL Normal [facility] Comment on above: Performed By: #### A 1C #### [facility] [address] [address] [address] Carleen Garvey HbA1c (Bld) [Mass fraction] 5.6 % Normal 4.5-6.[address] [facility] Comment on above: Performed By: #### A 1C #### [facility] [address] [address] [address] Carleen Garvey LIPID PROFILEon 05-05-2022 CHOL-HDL RATIO NORM SEE BELOW Normal [facility] Comment on above: Result Comment: 3.3 - 4.4 LOW RISK 4.4 - 7.1 AVERAGE RISK 7.1 - 11.0 MODERATE RISK >11.0 HIGH RISK Performed By: #### C MP, URIC, LIPID #### [facility] [address] [address] [address] Carleen Garvey Cholesterol [Mass/Vol] 172 mg/dL Normal <=[address] [facility] Comment on above: Performed By: #### C MP, URIC, LIPID #### [facility] [address] [address] [address] Carleen Garvey Cholesterol in HDL [Mass/Vol] 61 mg/dL Critically high 40-[address] [facility] Comment on above: Performed By: #### C MP, URIC, LIPID #### [facility] [address] [address] [address] Carleen Garvey Cholesterol in LDL [Mass/Vol] 83.4 mg/dL Normal [facility] Comment on above: Performed By: #### C MP, URIC, LIPID #### [facility] [address] [address] [address] Carleen Garvey Cholesterol.total/Cho lesterol in HDL [Mass ratio] 2.8 {ratio} Normal [facility] Comment on above: Performed By: #### C MP, URIC, LIPID #### [facility] [address] [address] [address] Carleen Garvey HDL NORMAL > or = 60 mg/dl - LOW CARDIOVASCULAR RISK <40 mg/dl - HIGH CARDIOVASCULAR RISK Normal [facility] Comment on above: Performed By: #### C MP, URIC, LIPID #### [facility] [address] [place] [address] Dr. Carleen Garvey LDL CALC NORMAL SEE BELOW Normal [facility] Comment on above: Result Comment: <100 mg/dl OPTIMAL 100 - 129 mg/dl NEAR OR ABOVE OPTIMAL 130 - 159 mg/dl BORDERLINE HIGH 160 - 189 mg/dl HIGH >190 mg/dl VERY HIGH Performed By: #### C MP, URIC, LIPID #### [facility] [address] [address] [address] Carleen Garvey Triglyceride [Mass/Vol] 138 mg/dL Normal <=[address] [facility] Comment on above: Performed By: #### C MP, URIC, LIPID #### [facility] [address] [place] [address] Dr. Carleen Garvey VLDL CALC 27.6 mg/dL Normal [facility] Comment on above: Performed By: #### C MP, URIC, LIPID #### [facility] [address] [place] [address] Dr. Carleen Garvey OCC BLD IMMUNO SCREENon 04-24 OCCULT BLOOD Negative Normal NEGATIVE [facility] Comment on above: Performed By: #### O BSCRN #### [facility] [address] [place] [address] Dr. Carleen Garvey PROF 14(COMP METB)on 022 Albumin [Mass/Vol] 3.9 g/dL Normal 3.4-5.0 [facility] Comment on above: Performed By: #### C MP, URIC, LIPID #### [facility] [address] [place] [address] Dr. Carleen Garvey Albumin/Globulin [Mass ratio] 1.2 {ratio} Normal [facility] Comment on above: Performed By: #### C MP, URIC, LIPID #### [facility] [address] [place] [address] Dr. Carleen Garvey ALP [Catalytic activity/Vol] 54 U/L Normal 46-[address] [facility] Comment on above: Performed By: #### C MP, URIC, LIPID #### [facility] [address] [place] [address] Dr. Carleen Garvey ALT [Catalytic activity/Vol] 24 U/L Normal 16-[address] [facility] Comment on above: Performed By: #### C MP, URIC, LIPID #### [facility] [address] [address] [address] Carleen Garvey Anion gap [Moles/Vol] 13.4 mmol/L Normal [facility] Comment on above: Performed By: #### C MP, URIC, LIPID #### [facility] [address] [address] [address] Carleen Garvey AST [Catalytic activity/Vol] 18 U/L Normal 15-[address] [facility] Comment on above: Performed By: #### C MP, URIC, LIPID #### [facility] [address] [place] [address] Dr. Carleen Garvey Bilirubin [Mass/Vol] 0.6 mg/dL Normal 0.2-1.[address] [facility] Comment on above: Performed By: #### C MP, URIC, LIPID #### [facility] [address] [address] [address] Carleen Garvey Calcium [Mass/Vol] 8.9 mg/dL Normal 8.5-10.1 [facility] Comment on above: Performed By: #### C MP, URIC, LIPID #### [facility] [address] [place] [address] Dr. Carleen Garvey Chloride [Moles/Vol] 101 mmol/L Normal 98-[address] [facility] Comment on above: Performed By: #### C MP, URIC, LIPID #### [facility] [address] [address] [address] Carleen Garvey CO2 [Moles/Vol] 26.1 mmol/L Normal 21.0-32.0 [facility] Comment on above: Performed By: #### C MP, URIC, LIPID #### [facility] [address] [address] [address] Carleen Garvey Creatinine [Mass/Vol] 1.20 mg/dL Normal 0.70-1.[address] [facility] Comment on above: Performed By: #### C MP, URIC, LIPID #### [facility] [address] [address] [address] Carleen Garvey EGFR-AF BURKINAN >60 Normal >=60 [facility] Comment on above: Performed By: #### C MP, URIC, LIPID #### [facility] [address] [address] [address] Carleen Garvey EGFR-NON AF BURKINAN =60 Normal >=[address] [facility] Comment on above: Performed By: #### C MP, URIC, LIPID #### [facility] [address] [address] [address] Carleen Garvey Globulin (S) [Mass/Vol] 3.3 g/dL Normal [facility] Comment on above: Performed By: #### C MP, URIC, LIPID #### [facility] [address] [address] [address] Carleen Garvey Glucose [Mass/Vol] 125 mg/dL Critically high 74-106 [facility] Comment on above: Performed By: #### C MP, URIC, LIPID #### [facility] [address] [address] [address] Carleen Garvey Potassium [Moles/Vol] 4.5 mmol/L Normal 3.5-5.[address] [facility] Comment on above: Performed By: #### C MP, URIC, LIPID #### [facility] [address] [address] [address] Carleen Garvey Protein [Mass/Vol] 7.2 g/dL Normal 6.4-8.2 [facility] Comment on above: Performed By: #### C MP, URIC, LIPID #### [facility] [address] [address] [address] Carleen Garvey Sodium [Moles/Vol] 136 mmol/L Normal 136-145 [facility] Comment on above: Performed By: #### C MP, URIC, LIPID #### [facility] [address] [address] [address] Carleen Garvey Urea nitrogen [Mass/Vol] 20.0 mg/dL Critically high 7.0-18.[address] [facility] Comment on above: Performed By: #### C MP, URIC, LIPID #### [facility] [address] [place] [address] [address] [address] Carleen Garvey Urea nitrogen/Creatinine [Mass ratio] 16.7 mg/mg Normal [facility] Comment on above: Performed By: #### C MP, URIC, LIPID #### [facility] [address] [place] [address] [address] [address] Carleen Garvey URIC ACID SERUMon 05-05-2022 Urate [Mass/Vol] 6.9 mg/dL Normal 3.5-7.2 [facility] Comment on above: Performed By: #### C MP, URIC, LIPID #### [facility] [address] [place], [place] [id number] Dr. Carleen Garvey Covid-19 PCR ([facility])on SARS-CoV-2 (COVID-19) RNA JOHANNY+probe Ql (Unsp spec) Not detected Normal NOT DETECTED [facility] Comment on above: Result Comment: This test is not yet approved or cleared by the [place] FDA. When there are no FDA-approved or cleared tests available, and other criteria are met, FDA can make tests available under an emergency access mechanism called an Emergency Use Authorization (EUA). The EUA for this test is supported by the [place] of Health and Human Service's (HHS's) declaration [...] consistent with SARS-CoV-2. Performed By: #### C VDTBH #### [facility] [address] [place] [address] [address] [address] Carleen Garvey Vital Signs Date Time Vital Sign Value Performing Clinician Facility 12-30-2023 08:30-0400 Blood Pressure Location Frida Alfaro [facility] 12-30-2023 08:30-0400 Body temperature 97.88 [degF] Frida Lue [facility] 12-30-2023 08:30-0400 Diastolic blood pressure 72 mm[Hg] Frida Lue [facility] 12-30-2023 08:30-0400 Heart rate 79 /min Frida Lue [facility] 12-30-2023 08:30-0400 Respiratory rate 16 /min Frida Lue [facility] 12-30-2023 08:30-0400 Systolic blood pressure 116 mm[Hg] Frida Lue [facility] 03-28-2021 16:30-0400 Body height 182.88 cm Alejandro Olexa Other [facility] Other 03-28-2021 16:30-0400 Body mass index (BMI) [Ratio] 28.26 kg/m2 Alejandro Olexa Other [employer] [facility] Other 03-28-2021 16:30-0400 Body weight 94.53 kg Alejandro Olexa Other [facility] Other Encounters Encounter Date Encounter Type Care Provider Facility Start: 01-20-2024 ambulatory Frida M. Lue Facility:[facility] Start: 01-13-2024 ambulatory Frida M. Lue Facility[facility] Start: 01-08-2024 Telephone encounter Shelby Rockwell i, MD Work Phone: [address] [place] [address] Comment on above: Patient Request Start: 01-01-2024 ambulatory Frida Lue Facility:[facility] Start: 12-30-2023 End: 12-30-2023 ambulatory Frida Alfaro Facility:[facility] Start: 12-30-2023 End: 12-30-2023 Patient encounter procedure Frida Alfaro [facility] Start: 05-06-2022 End: 05-06-[address] JANINE NEELY Facility:[facility] Start: 05-05-2022 End: 05-06-[address] JANINE NEELY Facility:[facility] Start: 07-01-2021 End: 07-01-[address] JANINE NEELY Facility:[facility] Start: 03-28-2021 End: 03-28-2021 ambulatory Alejandro Santoro Other [employer] [facility] Other Start: 03-28-2021 Office outpatient ne w 30 minutes Alejandro Santoro [facility] Procedures Date Procedure Procedure Detail Performing Clinician Start: 05-05-[address] DANII NEELY Comment on above: Performed By: #### P [facility] #### [facility] [address] [place] [address] Dr. Carleen Garvey Start: 05-25-2004 Colonoscopy Frida Moralesalena Tonsillectomy Frida Alfaro Plan of Treatment Date Care Activity Detail Author Start: 05-20-2024 End: 05-20-2024 Patient encounter procedure 05/20/2024 1:00 PM EST Office Visit [facility] [address] [place] [address] Shelby Yoo MD [address] [place] [address] Establish care//New patient [facility] Comment on above: Establish care//New patient Start: 01-24-2024 Influenza vaccination Influenza Vacc ine (#1) [facility] Start: 05-25-2023 Advance Directive Discussion Advance Directive Discussion [facility] Start: 01-23-2023 Covid-19 Vaccine ( season) Covid-19 Vaccine ( season) [facility] Start: 2018 Pneumococcal Vaccine : 65+ (1 of 1 - PCV) Pneumococcal Vaccine: 65+ (1 of 1 - PCV) [facility] Start: 2013 RSV Vaccine (1 - 1-d ose 60+ series) RSV Vaccine (1 - 1-dose 60+ series) [facility] Start: 2003 Shingrix Vaccine (1 of 2) Shingrix Vaccine (1 of 2) [facility] Start: 1998 Diabetes Screening Diabetes Screenin g [facility] Start: 1998 Screening for malign ant neoplasm of colon [facility] Start: 02-24-1988 Lipid panel Lipid Screening [facility] Start: 02-24-1972 Urine microalbumin profile DTaP,Tdap,Td Vaccine (1 - Tdap) [facility] Start: 1971 Anxiety Screening Anxiety Screening [facility] Start: 1971 Depression Screening Depression Scre ening [facility] Start: 1971 Hepatitis C screening Hepatitis C Sc [facility] Immunizations Immunization Date Immunization Notes Care Provider Raj archer 02-18-2023 influenza virus vacc ine, unspecified formulation Frida Alfaro [facility] 04-29-2022 SARS-CoV-2 (COVID-19 ) [id number] Frida Alfaro [facility] 03-19-2022 influenza virus vacc ine, unspecified formulation Frida Alfaro [facility] 03-28-2021 influenza virus vacc ine, unspecified formulation Frida Alfaro [facility] 08-28-2020 SARS-CoV-2 (COVID-19 ) mRNA BNT-162b2 vax Frida Alfaro [facility] 08-14-2020 SARS-CoV-2 (COVID-19 ) mRNA BNT-162b2 vax Frida Lue [facility] 03-09-2020 influenza virus vacc ine, unspecified formulation Frida Lue [facility] 03-09-2020 pneumococcal polysaccharide vaccine, 23 valent Frida Lue [facility] 01-29-2019 influenza virus vacc ine, unspecified formulation Frida Lue [facility] 01-29-2019 pneumococcal conjuga te vaccine, 13 valent Frida Lue [facility] 04-25-2018 influenza virus vacc ine, unspecified formulation Frida Lue [facility] 04-23-2017 influenza virus vacc ine, unspecified formulation Frida Lue [facility] Payers Date Payer Category Payer Medicare AETNA MEDICARE A ETNA MEDICARE PPO [id number] 2021-Present [phone] [address] [place] [address] PPO [id number] 1961 Medicare [id number] 1955 Unknown [id number] 1955 Unknown [id number] 1955 Unknown [id number] 1955 Unknown [id number] 1955 Unknown [id number] Medicare [id number] Unknown [id number] Social History Date Type Detail Facility Unknown if ever smoked [employer] [facility] Other Sex Assigned At [facility] Start: 12-30-2023 Tobacco smoking status Never [facility] Tobacco smoking stat [facility] Tobacco smoking consumption unknown [facility] Start: 1955 Sex Assigned At Male [facility] Start: 01-08-2024 Gender identity Identifies as male gender (finding) [facility] Start: 01-08-2024 Sexual orientation Heterosexual (finding) [facility] Functional Status Date Assessment Result Facility 12-30-2023 Functional Status N/A [facility] Clinical Notes 03-28-2021 to 01-08-2024 Telephone Encounter - Elizabeth Bojorquez - 01/08/2024 11:40 AM EDTTelephone Encounter - Elizabeth Bojorquez - 01/08/2024 11:40 AM EDTTelephone Encounter - Graciela Vazquez PA-C - 01/08/2024 11:36 AM EDT Note Date & Type Note Facility 01-08-2024 Telephone encount er Note Patient Scheduled for Establish Care with Shelby Yoo MD on 05/20/24 at 1:00 PM. [facility] 01-08-2024 Miscellaneous Notes Formattin g of this note might be different from the original. Patient Scheduled for Establish Care with Shelby Yoo MD on 05/20/24 at 1:00 PM. Yes, he can establish with Dr. Yoo. Please arrange for establish care visit. If patient has acute concerns please schedule with me for acute visit prior to establish care visit. Thanks, Graciela Vazquez PA-C Please advise if willing to take spouse of current patient (Ida Dale) Tyler is calling Shelby Yoo MD today stating that his Ida Dale 52 is a patient of Dr[address] Yoo and wants to ask if she will take him on as a new patient. Please advise. Patient has been identified by name and birthdate. Duration of symptoms: N/A Person calling: self Call patient at: on cell [phone] (home) [phone] (cell) Was an appointment scheduled: No Closing statement: Results or non-symptom based questions: Thank you for calling [facility], your call will be returned within the next business day. Naomy Umana documented in this encounter [facility] 01-08-2024 Telephone encount er Note Yes, he can establish with Dr. Yoo. Please arrange for establish care visit. If patient has acute concerns please schedule with me for acute visit prior to establish care visit. Thanks, Graciela Vazquez PA-C [facility] Work Phone: 01-08-2024 Telephone encount er Note Please advise if willing to take spouse of current patient (Ida Dale) [facility] 01-08-2024 Telephone encount er Note Tyler is calling Shelby Yoo MD today stating that his Ida Dale [birth year] is a patient of Dr[address] Yoo and wants to ask if she will take him on as a new patient. Please advise. Patient has been identified by name and birthdate. Duration of symptoms: N/A Person calling: self Call patient at: on cell [phone] (home) [phone] (cell) Was an appointment scheduled: No Closing statement: Results or non-symptom based questions: Thank you for calling [facility], your call will be returned within the next business day. Naomy Umana [facility] 12-30-2023 Hospital Discharg e instructions Patient Education 12/30/2023 09:00:49 Acute Urinary Retention, Male Acute Urinary Retention, Male Acute urinary retention is a condition in which a person is unable to pass urine or can only pass a little urine. This condition can happen suddenly and last for a short time. If left untreated, it can become long-term (chronic) and result in kidney damage or other serious complications. What are the causes? This condition may be caused by: Obstruction or narrowing of the tube that drains the bladder (urethra). This may be caused by surgery, problems with nearby organs, or injury to the bladder or urethra. Problems with the nerves in the bladder. Tumors in the area of the pelvis, bladder, or urethra. Certain medicines. Bladder or urinary tract infection. Constipation. What increases the risk? This condition is more likely to develop in older men. As men age, their prostate may become larger and may start to press or squeeze on the bladder or the urethra. Other chronic health conditions can increase the risk of acute urinary retention. These include: Diseases such as multiple sclerosis. Spinal cord injuries. Diabetes. Degenerative cognitive conditions, such as delirium or dementia. Psychological conditions. A man may hold his urine due to trauma or because he does not want to use the bathroom. What are the signs or symptoms? Symptoms of this condition include: Trouble urinating. Pain in the lower abdomen. How is this diagnosed? This condition is diagnosed based on a physical exam and your medical history. You may also have other tests, including: An ultrasound of the bladder or kidneys or both. Blood tests. A urine analysis. Additional tests may be needed, such as a CT scan, MRI, and kidney or bladder function tests. How is this treated? Treatment for this condition may include: Medicines. Placing a thin, sterile tube (catheter) into the bladder to drain urine out of the body. This is called an indwelling urinary catheter. After it is inserted, the catheter is held in place with a small balloon that is filled with sterile water. Urine drains from the catheter into a collection bag outside of the body. Behavioral therapy. Treatment for other conditions. If needed, you may be treated in the hospital for kidney function problems or to manage other complications. Follow these instructions at home: Medicines Take uxvl-niv-wpttgfl and prescription medicines only as told by your health care provider. Avoid certain medicines, such as decongestants, antihistamines, and some prescription medicines. Do not take any medicine unless your health care provider approves. If you were prescribed an antibiotic medicine, take it as told by your health care provider. Do not stop using the antibiotic even if you start to feel better. General instructions Do not use any products that contain nicotine or tobacco. These products include cigarettes, chewing tobacco, and vaping devices, such as e-cigarettes. If you need help quitting, ask your health care provider. Drink enough fluid to keep your urine pale yellow. If you have an indwelling urinary catheter, follow the instructions from your health care provider. Monitor any changes in your symptoms. Tell your health care provider about any changes. If instructed, monitor your blood pressure at home. Report changes as told by your health care provider. Keep all follow-up visits. This is important. Contact a health care provider if: You have uncomfortable bladder contractions that you cannot control (spasms). You leak urine with the spasms. Get help right away if: You have chills or a fever. You have blood in your urine. You have a catheter and the following happens: ?Your catheter stops draining urine. ?Your catheter falls out. Summary Acute urinary retention is a condition in which a person is unable to pass urine or can only pass a little urine. If left untreated, this condition can result in kidney damage or other serious complications. An enlarged prostate may cause this condition. As men age, their prostate gland may become larger and may press or squeeze on the bladder or the urethra. Treatment for this condition may include medicines and placement of an indwelling urinary catheter. Monitor any changes in your symptoms. Tell your health care provider about any changes. This information is not intended to replace advice given to you by your health care provider. Make sure you discuss any questions you have with your health care provider. Document Revised: 01/30/2021 Document Reviewed: 01/30/2021 [employer] Patient Education 2022 [employer]. 12/30/2023 09:00:47 Kidney Stones, Ymmn-sb-Wymc Kidney Stones Kidney stones are rock-like masses that form inside of the kidneys. Kidneys are organs that make pee (urine). A kidney stone may move into other parts of the urinary tract, including: The tubes that connect the kidneys to the bladder (ureters). The bladder. The tube that carries urine out of the body (urethra). Kidney stones can cause very bad pain and can block the flow of pee. The stone usually leaves your body (passes) through your pee. You may need to have a doctor take out the stone. What are the causes? Kidney stones may be caused by: A condition in which certain glands make too much parathyroid hormone (primary hyperparathyroidism). A buildup of a type of crystals in the bladder made of a chemical called uric acid. The body makes uric acid when you eat certain foods. Narrowing (stricture) of one or both of the ureters. A kidney blockage that you were born with. Past surgery on the kidney or the ureters, such as gastric bypass surgery. What increases the risk? You are more likely to develop this condition if: You have had a kidney stone in the past. You have a family history of kidney stones. You do not drink enough water. You eat a diet that is high in protein, salt (sodium), or sugar. You are overweight or very overweight (obese). What are the signs or symptoms? Symptoms of a kidney stone may include: Pain in the side of the belly, right below the ribs (flank pain). Pain usually spreads (radiates) to the groin. Needing to pee often or right away (urgently). Pain when going pee (urinating). Blood in your pee (hematuria). Feeling like you may vomit (nauseous). Vomiting. Fever and chills. How is this treated? Treatment depends on the size, location, and makeup of the kidney stones. The stones will often pass out of the body through peeing. You may need to: Drink more fluid to help pass the stone. In some cases, you may be given fluids through an IV tube put into one of your veins at the hospital. Take medicine for pain. Make changes in your diet to help keep kidney stones from coming back. Sometimes, medical procedures are needed to remove a kidney stone. This may involve: A procedure to break up kidney stones using a beam of light (laser) or shock waves. Surgery to remove the kidney stones. Follow these instructions at home: Medicines Take zsvs-yqh-vuqutnr and prescription medicines only as told by your doctor. Ask your doctor if the medicine prescribed to you requires you to avoid driving or using heavy machinery. Eating and drinking Drink enough fluid to keep your pee pale yellow. You may be told to drink at least 8 10 glasses of water each day. This will help you pass the stone. If told by your doctor, change your diet. This may include: ?Limiting how much salt you eat. ?Eating more fruits and vegetables. ?Limiting how much meat, poultry, fish, and eggs you eat. Follow instructions from your doctor about eating or drinking restrictions. General instructions Collect pee samples as told by your doctor. You may need to collect a pee sample: ?24 hours after a stone comes out. ?8 12 weeks after a stone comes out, and every 6 12 months after that. Strain your pee every time you pee (urinate), for as long as told. Use the strainer that your doctor recommends. Do not throw out the stone. Keep it so that it can be tested by your doctor. Keep all follow-up visits as told by your doctor. This is important. You may need follow-up tests. How is this prevented? To prevent another kidney stone: Drink enough fluid to keep your pee pale yellow. This is the best way to prevent kidney stones. Eat healthy foods. Avoid certain foods as told by your doctor. You may be told to eat less protein. Stay at a healthy weight. Where to find more information National Kidney Foundation (NKF): www.kidney.org [facility] (UCF): www.urologyhealth.org Contact a doctor if: You have pain that gets worse or does not get better with medicine. Get help right away if: You have a fever or chills. You get very bad pain. You get new pain in your belly (abdomen). You pass out (faint). You cannot pee. Summary Kidney stones are rock-like masses that form inside of the kidneys. Kidney stones can cause very bad pain and can block the flow of pee. The stones will often pass out of the body through peeing. Drink enough fluid to keep your pee pale yellow. This information is not intended to replace advice given to you by your health care provider. Make sure you discuss any questions you have with your health care provider. Document Revised: 01/13/2022 Document Reviewed: 01/13/2022 [employer] Patient Education 2022 [employer]. Follow Up Care 12/17/2023 13:25:47 With:Dominic ALBRIGHT, SHANNA Frances, URO Address: [address] [place] [address]- [phone] When: Unknown [facility] 12-30-2023 Note Patient Education Urology Acute Urinary Retention, Male Acute urinary retention is a condition in which a person is unable to pass urine or can only pass a little urine. This condition can happen suddenly and last for a short time. If left untreated, it can become long-term (chronic) and result in kidney damage or other serious complications. What are the causes? This condition may be caused by: ? Obstruction or narrowing of the tube that drains the bladder (urethra). This may be caused by surgery, problems with nearby organs, or injury to the bladder or urethra. ? Problems with the nerves in the bladder. ? Tumors in the area of the pelvis, bladder, or urethra. ? Certain medicines. ? Bladder or urinary tract infection. ? Constipation. What increases the risk? This condition is more likely to develop in older men. As men age, their prostate may become larger and may start to press or squeeze on the bladder or the urethra. Other chronic health conditions can increase the risk of acute urinary retention. These include: ? Diseases such as multiple sclerosis. ? Spinal cord injuries. ? Diabetes. ? Degenerative cognitive conditions, such as delirium or dementia. ? Psychological conditions. A man may hold his urine due to trauma or because he does not want to use the bathroom. What are the signs or symptoms? Symptoms of this condition include: ? Trouble urinating. ? Pain in the lower abdomen. How is this diagnosed? This condition is diagnosed based on a physical exam and your medical history. You may also have other tests, including: ? An ultrasound of the bladder or kidneys or both. ? Blood tests. ? A urine analysis. ? Additional tests may be needed, such as a CT scan, MRI, and kidney or bladder function tests. How is this treated? Treatment for this condition may include: ? Medicines. ? Placing a thin, sterile tube (catheter) into the bladder to drain urine out of the body. This is called an indwelling urinary catheter. After it is inserted, the catheter is held in place with a small balloon that is filled with sterile water. Urine drains from the catheter into a collection bag outside of the body. ? Behavioral therapy. ? Treatment for other conditions. If needed, you may be treated in the hospital for kidney function problems or to manage other complications. Follow these instructions at home: Medicines ? Take [id number] and prescription medicines only as told by your health care provider. Avoid certain medicines, such as decongestants, antihistamines, and some prescription medicines. Do not take any medicine unless your health care provider approves. ? If you were prescribed an antibiotic medicine, take it as told by your health care provider. Do not stop using the antibiotic even if you start to feel better. General instructions ? Do not use any products that contain nicotine or tobacco. These products include cigarettes, chewing tobacco, and vaping devices, such as e-cigarettes. If you need help quitting, ask your health care provider. ? Drink enough fluid to keep your urine pale yellow. ? If you have an indwelling urinary catheter, follow the instructions from your health care provider. ? Monitor any changes in your symptoms. Tell your health care provider about any changes. ? If instructed, monitor your blood pressure at home. Report changes as told by your health care provider. ? Keep all follow-up visits. This is important. Contact a health care provider if: ? You have uncomfortable bladder contractions that you cannot control (spasms). ? You leak urine with the spasms. Get help right away if: ? You have chills or a fever. ? You have blood in your urine. ? You have a catheter and the following happens: ? Your catheter stops draining urine. ? Your catheter falls out. Summary ? Acute urinary retention is a condition in which a person is unable to pass urine or can only pass a little urine. If left untreated, this condition can result in kidney damage or other serious complications. ? An enlarged prostate may cause this condition. As men age, their prostate gland may become larger and may press or squeeze on the bladder or the urethra. ? Treatment for this condition may include medicines and placement of an indwelling urinary catheter. ? Monitor any changes in your symptoms. Tell your health care provider about any changes. This information is not intended to replace advice given to you by your health care provider. Make sure you discuss any questions you have with your health care provider. Document Revised: 01/30/2021 Document Reviewed: 01/30/2021 [employer] Patient Education ? 2022 [employer]. Kidney Stones Kidney stones are rock-like masses that form inside of the kidneys. Kidneys are organs that make pee (urine). A kidney stone may move into other parts of the urinary tract, including: ? The tub (more content not included)... [facility] 03-28-2021 Evaluation note Encounter Date Diagnosis Assessment [...] We discussed gentle range of motion exercises. [employer] Other Evaluation + Plan note Future Appointments Appointment Date:01/13/2024 08:00:00 AM Scheduled Provider: Location:[facility] Appointment Type:URO Nurse Visit [facility] History general Narrative - Reported* Type Description Date Medical History Hypercholesterolemia Medical History Benign essential HTN Surgical History tonsillectomy Surgical History colonoscopy [employer] Other Hospital course Narrative No data available for this section [facility] progress note No data available for this section [facility] Summary Purpose Family History No Family History Records Found No data available for this section No Family History Records FoundNo Family History Records Found Advance Directives No Advanced Directives Records FoundNo Advanced Directives Records FoundNo Advanced Directives Records Found Additional Source Comments REASON FOR VISIT (unrecogniz ed section and content) Reason Comments Patient Request (unrecognized sect ion and content) No Status Records FoundNo Status Records FoundNo Status Records Found INFORMATION SOURCE (unrecogn ized section and content) DATE CREATED AUTHOR 05/16/2022 [facility] DATE CREATED AUTHOR AUTHOR'S ORGANIZ ATION 01/02/2024 [facility] DATE CREATED AUTHOR AUTHOR'S ORGANIZ ATION 01/10/2024 [facility] Patient Care team informatio n (unrecognized section and content) Personnel Name: Janine Neely MD Address: Address: [address] [place] [address] Source Comments (unrecognize d section and content) In the event this informatio n is protected by the Federal Confidentiality of Alcohol and Drug Abuse Patient Records regulations: The Federal rules restrict any use of the information to criminally investigate or prosecute any alcohol or drug abuse patient.[facility] FOR RECORDS PERTAINING TO PATIENTS WHO [...] BE BASED ON THE PRIMARY CLINICAL RECORDS. [facility]. provides no warranty or guarantee of the accuracy or completeness of information in this document.
== END 2024-01-11 08:48 | disposition home or self-care (01) ==
LOC: US 08:47
PROVIDERS: PCP Family Medicine; Visit Provider Urology
DX: N13.2 Hydronephrosis with renal and ureteral calculous obstruction (principal); N20.0 Calculus of kidney
CPT/HCPCS: 74018; 76775

== ENCOUNTER 2024-01-15 08:00 | Outpatient (OUT) | payer MEDICARE, SELFPAY ==
--- NOTE | 2024-01-15 08:04 | CT_ITS ---
[address] [address] Patient Name: TYLER DALE MRN: [id number] date: 1955 Sex: M Assigned Patient Location: CT Current Patient Location: CT Accession/Order Number: [id number] Exam Date: 01/15/2024 08:15 Report Date: 01/15/2024 08:43 At the request of: JENN HADLEY Procedure: CT abdomen pelvis wo con EXAMINATION: CT abdomen pelvis wo con HISTORY: ureteral stone with hydronephrosis N13.2 ; difficulty urinating COMPARISON: CT abdomen pelvis 12/17/2023 TECHNIQUE: Axial, Coronal, and Sagittal images were obtained without and/or with IV contrast as indicated by examination type. Dose reduction techniques were achieved by using automated exposure control and/or adjustment of mA and/or kV according to patient size and/or use of iterative reconstruction technique. FINDINGS: LUNG BASES: No visible pulmonary or pleural disease. LIVER: No enlargement, atrophy, suspicious density, or significant focal lesion. BILIARY: Multiple 1 cm stones within noninflamed gallbladder. PANCREAS: No lesion, fluid collection, or abnormal duct dilatation. SPLEEN: No enlargement or focal lesion. ADRENALS: No mass or enlargement. KIDNEYS: Several small nonobstructing stones within the kidneys. No ureteral stones. BOWEL/MESENTERY: No visible mass, obstruction, or bowel wall thickening. Normal appendix. AORTA/VASCULAR: No aneurysm or dissection. RETROPERITONEUM: No mass or adenopathy. LYMPH NODES: No adenopathy. URINARY BLADDER: New 6 mm stone within bladder. Moody catheter within bladder and small amount of fluid. Wall thickening of bladder. PELVIC ORGANS: No visible mass. Pelvic organs appropriate for patient age. ABDOMINAL WALL: No mass or hernia. BONES: No bony lesion or fracture. OTHER: Negative. CT/CT abdomen pelvis wo con IMPRESSION: 1. Bilateral nonobstructing nephrolithiasis. 2. New 6 mm stone within the urinary bladder since 12/17/2023. 3. Wall thickening of urinary bladder; lack of distention versus muscular hypertrophy versus cystitis. 4. Cholelithiasis. Electronically authenticated by: ONHEMI LERMA Date: 01/15/2024 08:43
--- OUTSIDE RECORDS SUMMARY | 2024-01-15 08:17 | XMS_ITS | CCD ---
Author Organization 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 Role Phone Alejandro Santoro Unavailable DR JANINE NEELY Attending Unavailable HOY, DR MEHTA Consulting Unavailable MILAY, DR MEHTA Primary Care Unavailable MILAY, DR MEHTA Admitting Unavailable JOEY, DR MEHTA Referring Unavailable MILAY, DR MEHTA Attending Unavailable MILAY, DR MEHTA Consulting Unavailable JOEY, DR MEHTA Primary Care Unavailable JOEY, DR MEHTA Admitting Unavailable JOEY, DR MEHTA Attending Unavailable MILAY, DR MEHTA Consulting Unavailable JOEY, DR MEHTA Primary Care Unavailable JOEY, DR MEHTA Admitting Unavailable Janine Neely Primary Care Physician [phone] Unavailable Primary Care Provider UnavailFrida Amaya Attending Unavailable Frida Alfaro Attending Unavailable Frida Alfaro Attending Unavailable Medications Current Medications Medication Drug Class(es) Dates Sig (Normalized) Sig (Original) losartan potassium 25 mg oral tablet (1 source) Angiotensin 2 Receptor Joey Losartan Potassium 25 MG Orally Active tamsulosin hydrochloride 0.4 mg oral capsule (2 sources) alpha-Adrenergic Joey Start: 01-13-2024 End: 01-07-2025 tamsulosin 0.4 mg Cap 0.8 mg = 2 cap(s), Oral, qPM, Decrease to once daily if experiencing dizziness or lightheadedness., X 30 day(s), # 60 cap(s), Refills(s) 11, Pharmacy: [facility]/pharmacy #[id number], 184, cm, 12/30/23 8:36:00 EDT, Height/Length Dosing, 86, kg, 12/30/23 8:36:00 EDT, Weight Dosing Start Date: 01/13/24 Stop Date: 01/07/25 Status: Ordered Start: 08-07-2024 take 1 capsule by [facility] once daily tamsulosin 0.4 mg Cap 0.4 mg = 1 cap(s), Oral, Daily, # 30 cap(s), Refills(s) 11, Pharmacy: [facility]/pharmacy #[id number], 184, cm, 12/30/23 8:36:00 EDT, Height/Length Dosing, 86, kg, 12/30/23 8:36:00 EDT, Weight Dosing Start Date: 12/30/23 Status: Ordered Completed/Discontinued Medications Medication Drug Class(es) Dates Sig (Normalized) Sig (Original) lisinopril 40 mg oral tablet (3 sources) Angiotensin Converting Enzyme Inhibitor Start: 12-30-2023 take 1 tablet by mouth once daily lisinopril 40 mg Tab 40 mg = 1 tab(s), Oral, Daily, TAKE 1 TABLET BY MOUTH EVERY DAY FOR 90 DAYS Start Date: 12/30/23 Status: Ordered Lisinopril 40 MG Orally Once a day Active Problems Active Problems Problem Classification Problem Date Documented Date Episodic/Chronic Calculus of urinary tract (6 sources) Kidney stone; Translations: [Calculus of kidney] Onset: 12-30-2023 Episodic Diabetes mellitus without complication (1 source) Other abnormal glucose; Translations: [OTHER ABNORMAL GLUCOSE] Onset: 05-10-2022 Episodic Disorders of lipid metabolism (1 source) Hyperlipidemia, unspecified; Translations: [HYPERLIPIDEMIA UNSPECIFIED] Onset: 05-10-2022 Chronic Essential hypertension (7 sources) Essential (primary) hypertension; Translations: [Hypertensive disorder] Onset: 05-05-2022 Chronic Genitourinary symptoms and ill-defined conditions (4 sources) Retention of urine; Translations: [Retention of urine, unspecified] Onset: 12-30-2023 Episodic Hyperplasia of prostate (4 sources) Benign prostatic hypertrophy with outflow obstruction; Translations: [Benign prostatic hyperplasia with lower urinary tract symptoms] Onset: 12-30-2023 Chronic Other diseases of kidney and ureters (2 sources) Urinary tract obstruction; Translations: [Hydronephrosis with renal and ureteral calculous obstruction] Onset: 12-30-2023 Episodic Other diseases of kidney and ureters (2 sources) Hydronephrosis 12-23-2023 Episodic Other nutritional; endocrine; and [...] W/AND (SUSP) EXPOS COVID-19] Onset: 07-03-2021 Unclassified (2 sources) Obstructive hydronephrosis 12-30-2023 Unclassified (2 sources) Patient encounter status 12-30-2023 Past or Other [...] Test Name Value Interpretation Reference Range Facility Ambulatory Visit Summaryon 0 01-13-2024 Ambulatory Visit Summary Ambulatory Visit Summary TYLER DALE :1955 Visit Date:01/13/2024 Ambulatory Visit Instructions Your Care Team Attending Physician - Dominic ALBRIGHT, Frida Malhotra Primary Care Physician - Janine Neely MD This Is Your Medications List lisinopril (lisinopril 40 mg Tab) tamsulosin (tamsulosin 0.4 mg Cap) Procedures Performed Colonoscopy (2004), Tonsillectomy. Medications What How Much When Instructions Unchanged lisinopril (lisinopril 40 mg Tab) 1 Tablets By Mouth Every day TAKE 1 TABLET BY MOUTH EVERY DAY FOR 90 DAYS Unchanged tamsulosin (tamsulosin 0.4 mg Cap) 1 Capsules By Mouth Every day Allergies No Known Allergies Problems Ongoing - [...] you for choosing us for your care. Normal [facility] Urology Office/Clinic Noteon 01-13-2024 Urology Office/Clinic Note Urology Office/Clinic Note HPI Staff Pt is here to have cath replaced. Wasn't able to void even with 200 cc of sterile water was flushed in earlier this morning. Pt has the urge. Pt is taking tamsulosin 0.4 mg qd. History of Present Illness Tests reviewed: reviewed ROBYN, KUB, CT, labs I have reviewed the previous health record information and history for this patient from Dr. Alfaro. I have reviewed and verified the staff HPI to be accurate for this encounter. Review of Systems ROS - Provider Constitutional: denies weight loss, denies hot flashes. Eyes: denies eye problems. Gastrointestinal: denies nausea, denies vomiting. Cardiovascular: denies chest pain or angina. Integumentary: no dryness Musculoskeletal: denies musculoskeletal symptoms. ENMT: denies otolaryngeal symptoms. Respiratory: no shortness of breath. Heme/Lymph: denies easy bleeding tendency, denies easy bruising tendency. Psychiatric: no confusion, no anxiety. Genitourinary: See HPI. Physical Exam General Appearance: alert, no distress, well nourished, well developed male. Assessment/Plan 68 yo pt had cath removed for voiding trial this morning around 8 am. He was unable to void so returned to the office for cath replacement. Present with . Not AC. No hx of WI or stroke. [1] 1. Urinary retention (R33.9: Retention of urine, unspecified) [facility] ER visit 12/16/23 due to L flank pain. CT AP wo con 12/16/23 [facility] - Moderate to severe dilatation of the bladder. Catheter was placed with >1200 mL output. Was discharged with Keflex x7 days and Flomax. (asx regarding retention) Counseled pt retention could either be caused by ARMAS from prostate or atonic bladder (from chronic ARMAS) or could be related to ureteral stone. Explained urinary retention workup including cysto to eval ARMAS from prostate as well as urodynamics. Given pt wants optimal opportunity to void, will forgo UDS given some pts can recover spontaneous voiding despite atonic bladder on UDS. Sacral neuromodulation also an option. 18 Fr cath placed IO today wo complications and flushed appropriately to ensure proper placement. The patient denies major complications since the last catheter change. There has been no blood in the urine and no evidence of fever, chills, or flank pain. Discussed options for urinary retention including keep indwelling hoyos until workup with changes q4wk vs learn CIC, which can aid in bladder retraining. R/Bs of options discussed. Can also double Flomax to further improve urination. It is likely that pt's urinary retention is from chronic ARMAS and not from possible ureteral stone. -Pt will call if he would like to learn CIC, would schedule nurse visit. -Increase Flomax to 0.8 mg. Decrease to 1 tab if experiencing dizziness or lightheadedness. -If URS cancelled, will schedule cysto. The risks and benefits for cystoscopy have been discussed. The risks include bleeding, infection, and irritation of the bladder and urinary channel, among others. The patient, after being informed of procedural details and after questions have been answered, wishes to proceed. Full informed consent has been obtained. Will order Local anesthesia. 2. Ureteral stone with hydronephrosis (N13.2: Hydronephrosis with renal and ureteral calculous obstruction) CT AP wo con 12/16/23 [facility] - Moderate L hydronephrosis and hydroureter secondary to a 7 mm proximal ureteral stone. KUB 01/11/24 [facility] - No visible urinary tract calculi. 6 mm stone described w/in L kidney on same day US and the stone w/in the L ureter seen on prior CT are not visible. Limited eval due to dense bowel content. ROBYN 01/11/24 [facility] - 6 x 5 mm LLP renal stone. No hydro. Renal fxn: 12/17/23 - BUN 21, Cr 1.35, GFR 52. 01/04/24 - BUN 16, Cr 1.06, GFR >60. Reviewed imaging with pt, stone not visible per KUB and ROBYN. Unfortunately, [facility] portal is not loading his CT image. His labs have improved as well. It is possible he has passed the ureteral stone but it also possible that obstructing ureteral stone is present and pt is asx. Discussed options including proceeding with schedule L URS with laser litho, basket extraction of possible ureteral stone and known renal stone vs repeat CT prior to surgery to see if ureteral stone is still present then cysto at another time to eval prostate and bladder. R/Bs of options discussed. Pt elects to repeat CT scan -Schedule STAT CT AP wo con. Will call pt with results. If ureteral stone present, keep scheduled surgery. If neg for ureteral stone, cancel URS and proceed with urinary retention workup above. 3. Kidney stone (N20.0: Calculus of kidney) No hx of kidney stones. [2] CT AP wo con 12/16/23 [facility] - Punctate bilateral nonobstructing renal calculi. ROBYN 01/11/24 [facility] - 6 x 5 mm LLP renal stone. No hydro. ROBYN likely overestimating size given recent renal stones on CT were punctate ROBYN likely overestimating size. -Increase fluids for stone prevention 4. BPH with urinary obstruction (N40.1: Benign prostatic hyperpl (more content not included)... Normal [facility] Comment on above: Result Comment: Elec tronically Signed By: Dominic ALBRIGHT, Frida Malhotra\.br\Date and Time Signed: 01/13/24 12:22 EDT\.br\Electronically Co-Signed By: Bessie Christianson\.br\Date and Time Co-Signed: 01/13/24 12:07 EDT Cecilio 01-08-2024 CNPN Telephone (4CQ) TYLER DALE ([id number]) 1955 M Date Time Provider Department 01/08/24 [...] calling: self Call patient at: on cell [phone] (home) [phone] (cell) Was an appointment scheduled: No Closing statement: Results or non-symptom based questions: Thank you for calling [facility], your call will be returned within the [...] Status:Closed by ELIZABETH BOJORQUEZ on 01/08/24 Normal [facility] Ambulatory Visit Summaryon 0 12-30-2023 Ambulatory Visit Summary Ambulatory Visit Summary SUYAPA TYLER Costa :1955 Visit Date:12/30/2023 Ambulatory Visit Instructions Your Diagnosis Ureteral stone with hydronephrosis Kidney stones Urinary retention BPH with urinary obstruction Screening PSA (prostate specific antigen) Tests Performed US Renal -- Results Pending -- XR Abdomen 1 View -- Results Pending -- Please visit your patient portal for your results or contact your primary care physician. Your Care Team Attending Physician - Frida Alfaro MD Primary Care Physician - Janine Neely MD [...] Following Appointments Follow Up with Dominic ALBRIGHT, SHANNA Frances, URO When: Where: [address] [place] [address] [phone] Medications What How Much When Instructions New tamsulosin (tamsulosin 0.4 mg Cap) 1 Capsules By Mouth Every day Refills: 11 Pickup at [facility]/pharmacy #[id number] Unchanged lisinopril (lisinopril 40 mg Tab) 1 Tablets By Mouth Every day TAKE 1 TABLET BY MOUTH EVERY DAY FOR 90 DAYS Contact prescribing physician if questions or concerns Pharmacy Information [facility]/pharmacy #[id number]: [address] [place], [place] [id number] [phone] Allergies No Known Allergies Problems Ongoing - [...] these instructions at home: Medicines ? Take [id number]-awlfmhb and prescription medicines only as told by your health care provider. Avoid certain medicines, such as decongestants, antihistamines, and some prescription medicines. Do not take any medicine unless your health care provider approves. ? If you were prescribed an antibiotic medicin (more content not included)... Normal [facility] Urology Office/Clinic Noteon 12-30-2023 Urology Office/Clinic Note Urology Office/Clinic Note Chief Complaint New patient ED follow up 12/16/23 HPI Staff 68 year old male new patient seen in [place] ER 12/16/23. Pt presented to ER with [...] urinary retention. Not AC. No hx of WI or stroke. ML 22. 1. Ureteral stone [...] procedures. Admits (more content not included)... Normal [facility] Comment on above: Result Comment: Elec tronically Signed By: Frida Alfaro MD\.br\Date and Time Signed: 12/30/23 09:24 EDT\.br\Electronically Co-Signed By: Talia Mistry\.br\Date and Time Co-Signed: 12/30/23 09:04 EDT INSULINon 05-06-2022 Insulin 17.3 uIU/mL Normal 2.6-24.9 [facility] Comment on above: Performed By: #### I NSULIN #### [facility] [address] [place] [address] Dr. Carleen Garvey CBC AUTO DIFFon 05-05-2022 BASO # 0.1 103/ul Normal 0.0-0.1 [facility] Comment on above: Performed By: #### C BC #### [facility] [address] [place] [address] Dr. Carleen Garvey Basophils/100 WBC (Bld) 1.0 % Normal 0.2-2.0 [facility] Comment on above: Performed By: #### C BC #### [facility] [address] [place] [address] Dr. Carleen Garvey EO # 0.3 103/ul Normal 0.0-0.7 [facility] Comment on above: Performed By: #### C BC #### [facility] [address] [place] [address] Dr. Carleen Garvey Eosinophils/100 WBC (Bld) 4.9 % Normal 0.9-7.0 [facility] Comment on above: Performed By: #### C BC #### [facility] [address] [place] [address] Dr. Carleen Garvey Erythrocyte distribution width (RBC) [Ratio] 12.6 % Normal 11.0-15.0 [facility] Comment on above: Performed By: #### C BC #### [facility] [address] [place] [address] Dr. Carleen Garvey Hematocrit (Bld) [Volume fraction] 42.7 % Normal 42.0-54.0 [facility] Comment on above: Performed By: #### C BC #### [facility] [address] [address] [address] Carleen Garvey Hemoglobin (Bld) [Mass/Vol] 14.7 g/dL Normal 14.0-18.0 [facility] Comment on above: Performed By: #### C BC #### [facility] [address] [address] [address] Carleen Garvey IG # 0.01 10e3/ul Normal 0.00-0.03 [facility] Comment on above: Performed By: #### C BC #### [facility] [address] [place] [address] Dr. Carleen Garvey IG % 0.2 % Normal 0.0-0.5 [facility] Comment on above: Performed By: #### C BC #### [facility] [address] [place] [address] Dr. Carleen Garvey LYMPH # 1.6 103/ul Normal 1.2-3.8 [facility] Comment on above: Performed By: #### C BC #### [facility] [address] [place] [address] Dr. Carleen Garvey Lymphocytes/100 WBC (Bld) 29.5 % Normal 20.5-60.0 [facility] Comment on above: Performed By: #### C BC #### [facility] [address] [place] [address] Dr. Carleen Garvey MANUAL DIFF REQ NO Normal [facility] Comment on above: Performed By: #### C BC #### [facility] [address] [place] [address] Dr. Carleen Garvey MCH (RBC) [Entitic mass] 30.5 pg Normal 25.9-34.0 [facility] Comment on above: Performed By: #### C BC #### [facility] [address] [place] [address] Dr. Carleen Garvey MCHC (RBC) [Mass/Vol] 34.4 g/dL Normal 29.9-35.2 [facility] Comment on above: Performed By: #### C BC #### [facility] [address] [address] [address] Carleen Garvey MCV (RBC) [Entitic vol] 88.6 fL Normal 80.0-94.0 [facility] Comment on above: Performed By: #### C BC #### [facility] [address] [address] [address] Carleen Garvey MONO # 0.5 103/ul Normal 0.3-0.8 [facility] Comment on above: Performed By: #### C BC #### [facility] [address] [place] [address] Dr. Carleen Garvey Monocytes/100 WBC (Bld) 9.7 % Normal 1.7-12.0 [facility] Comment on above: Performed By: #### C BC #### [facility] [address] [place] [address] Dr. Carleen Garvey NEUT # 2.9 103/ul Normal 1.4-6.5 [facility] Comment on above: Performed By: #### C BC #### [facility] [address] [place] [address] Dr. Carleen Garvey Neutrophils/100 WBC (Bld) 54.7 % Normal 43.0-75.0 [facility] Comment on above: Performed By: #### C BC #### [facility] [address] [place] [address] Dr. Carleen Garvey Platelet mean volume (Bld) [Entitic vol] 10.3 fL Normal 9.5-13.5 [facility] Comment on above: Performed By: #### C BC #### [facility] [address] [place] [address] Dr. Carleen Garvey PLT 258 103/ul Normal 150-450 [facility] Comment on above: Performed By: #### C BC #### [facility] [address] [place] [address] Dr. Carleen Garvey RBC 4.82 106/ul Normal 4.70-6.10 [facility] Comment on above: Performed By: #### C BC #### [facility] [address] [address] [address] Carleen Garvey WBC 5.3 103/ul Normal 4.0-11.0 [facility] Comment on above: Performed By: #### C BC #### [facility] [address] [place] [address] Dr. Carleen Garvey GLYCOHEMOGLOBIN A1Con 2021 ADA RECOMMENDATION SEE BELOW Normal [facility] Comment on above: Result Comment: ADA RECOMMENDED LIMIT 4.0 - 6.0 ADA THERAPEUTIC TARGET < 7.0 ACTION SUGGESTED > 7.0 Performed By: #### A 1C #### [facility] [address] [place] [address] Dr. Carleen Garvey Glucose [Mass/Vol] 114 mg/dL Normal [facility] Comment on above: Performed By: #### A 1C #### [facility] [address] [place] [address] Dr. Carleen Garvey HbA1c (Bld) [Mass fraction] 5.6 % Normal 4.5-6.2 [facility] Comment on above: Performed By: #### A 1C #### [facility] [address] [place] [address] Dr. Carleen Garvey LIPID PROFILEon 05-05-2022 CHOL-HDL RATIO NORM SEE BELOW Normal [facility] Comment on above: Result Comment: 3.3 - 4.4 LOW RISK 4.4 - 7.1 AVERAGE RISK 7.1 - 11.0 MODERATE RISK >11.0 HIGH RISK Performed By: #### C MP, URIC, LIPID #### [facility] [address] [place] [address] Dr. Carleen Garvey Cholesterol [Mass/Vol] 172 mg/dL Normal <=200 [facility] Comment on above: Performed By: #### C MP, URIC, LIPID #### [facility] [address] [place] [address] Dr. Carleen Garvey Cholesterol in HDL [Mass/Vol] 61 mg/dL Critically high 40-60 [facility] Comment on above: Performed By: #### C MP, URIC, LIPID #### [facility] [address] [place] [address] Dr. Carleen Garvey Cholesterol in LDL [Mass/Vol] 83.4 mg/dL Normal [facility] Comment on above: Performed By: #### C MP, URIC, LIPID #### [facility] [address] [address] [address] Carleen Garvey Cholesterol.total/Cho lesterol in HDL [Mass ratio] 2.8 {ratio} Normal [facility] Comment on above: Performed By: #### C MP, URIC, LIPID #### [facility] [address] [address] [address] Carleen Garvey HDL NORMAL > or = 60 mg/dl - LOW CARDIOVASCULAR RISK <40 mg/dl - HIGH CARDIOVASCULAR RISK Normal [facility] Comment on above: Performed By: #### C MP, URIC, LIPID #### [facility] [address] [place] [address] Dr. Carleen Garvey LDL CALC NORMAL SEE BELOW Normal [facility] Comment on above: Result Comment: <100 mg/dl OPTIMAL 100 - 129 mg/dl NEAR OR ABOVE OPTIMAL 130 - 159 mg/dl BORDERLINE HIGH 160 - 189 mg/dl HIGH >190 mg/dl VERY HIGH Performed By: #### C MP, URIC, LIPID #### [facility] [address] [place] [address] Dr. Carleen Garvey Triglyceride [Mass/Vol] 138 mg/dL Normal <=150 [facility] Comment on above: Performed By: #### C MP, URIC, LIPID #### [facility] [address] [address] [address] Carleen Garvey VLDL CALC 27.6 mg/dL Normal [facility] Comment on above: Performed By: #### C MP, URIC, LIPID #### [facility] [address] [address] [address] Carleen Garvey OCC BLD IMMUNO SCREENon 04-24 OCCULT BLOOD Negative Normal NEGATIVE [facility] Comment on above: Performed By: #### O BSCRN #### [facility] [address] [place] [address] Dr. Carleen Garvey PROF 14(COMP METB)on 022 Albumin [Mass/Vol] 3.9 g/dL Normal 3.4-5.0 [facility] Comment on above: Performed By: #### C MP, URIC, LIPID #### [facility] [address] [address] [address] Carleen Garvey Albumin/Globulin [Mass ratio] 1.2 {ratio} Normal [facility] Comment on above: Performed By: #### C MP, URIC, LIPID #### [facility] [address] [address] [address] Carleen Garvey ALP [Catalytic activity/Vol] 54 U/L Normal 46-116 [facility] Comment on above: Performed By: #### C MP, URIC, LIPID #### [facility] [address] [address] [address] Carleen Garvey ALT [Catalytic activity/Vol] 24 U/L Normal 16-63 [facility] Comment on above: Performed By: #### C MP, URIC, LIPID #### [facility] [address] [address] [address] Carleen Garvey Anion gap [Moles/Vol] 13.4 mmol/L Normal [facility] Comment on above: Performed By: #### C MP, URIC, LIPID #### [facility] [address] [place] [address] Dr. Carleen Garvey AST [Catalytic activity/Vol] 18 U/L Normal 15-37 [facility] Comment on above: Performed By: #### C MP, URIC, LIPID #### [facility] [address] [address] [address] Carleen Garvey Bilirubin [Mass/Vol] 0.6 mg/dL Normal 0.2-1.0 [facility] Comment on above: Performed By: #### C MP, URIC, LIPID #### [facility] [address] [place] [address] Dr. Carleen Garvey Calcium [Mass/Vol] 8.9 mg/dL Normal 8.5-10.1 [facility] Comment on above: Performed By: #### C MP, URIC, LIPID #### [facility] [address] [place] [address] Dr. Carleen Garvey Chloride [Moles/Vol] 101 mmol/L Normal 98-107 [facility] Comment on above: Performed By: #### C MP, URIC, LIPID #### [facility] [address] [address] [address] Carleen Garvey CO2 [Moles/Vol] 26.1 mmol/L Normal 21.0-32.0 [facility] Comment on above: Performed By: #### C MP, URIC, LIPID #### [facility] [address] [address] [address] Carleen Garvey Creatinine [Mass/Vol] 1.20 mg/dL Normal 0.70-1.30 [facility] Comment on above: Performed By: #### C MP, URIC, LIPID #### [facility] [address] [place] [address] Dr. Carleen Garvey EGFR-AF SWEDISH >60 Normal >=60 [facility] Comment on above: Performed By: #### C MP, URIC, LIPID #### [facility] [address] [place] [address] Dr. Carleen Garvey EGFR-NON AF SWEDISH =60 Normal >=60 [facility] Comment on above: Performed By: #### C MP, URIC, LIPID #### [facility] [address] [place] [address] Dr. Carleen Garvey Globulin (S) [Mass/Vol] 3.3 g/dL Normal [facility] Comment on above: Performed By: #### C MP, URIC, LIPID #### [facility] [address] [address] [address] Carleen Garvey Glucose [Mass/Vol] 125 mg/dL Critically high 74-[address] [facility] Comment on above: Performed By: #### C MP, URIC, LIPID #### [facility] [address] [place] [address] Dr. Carleen Garvey Potassium [Moles/Vol] 4.5 mmol/L Normal 3.5-5.1 [facility] Comment on above: Performed By: #### C MP, URIC, LIPID #### [facility] [address] [place], [place] [address] Dr. Carleen Garvey Protein [Mass/Vol] 7.2 g/dL Normal 6.4-8.2 [facility] Comment on above: Performed By: #### C MP, URIC, LIPID #### [facility] [address] [place] [address] Dr. Carleen Garvey Sodium [Moles/Vol] 136 mmol/L Normal 136-145 [facility] Comment on above: Performed By: #### C MP, URIC, LIPID #### [facility] [address] [place] [address] Dr. Carleen Garvey Urea nitrogen [Mass/Vol] 20.0 mg/dL Critically high 7.0-18.0 [facility] Comment on above: Performed By: #### C MP, URIC, LIPID #### [facility] [address] [place] [address] Dr. Carleen Garvey Urea nitrogen/Creatinine [Mass ratio] 16.7 mg/mg Normal [facility] Comment on above: Performed By: #### C MP, URIC, LIPID #### [facility] [address] [place] [address] Dr. Carleen Garvey URIC ACID SERUMon 05-05-2022 Urate [Mass/Vol] 6.9 mg/dL Normal 3.5-7.2 [facility] Comment on above: Performed By: #### C MP, URIC, LIPID #### [facility] [address] [place] [address] Dr. Carleen Garvey Cov[facility]-19 [facility]on SARS-CoV-2 (COVID-19) RNA JOHANNY+probe Ql (Unsp spec) Not detected Normal NOT DETECTED [facility] Comment on above: Result Comment: This test is not yet approved or cleared by the [place] FDA. When there are no FDA-approved or cleared tests available, and other criteria are met, FDA can make tests available under an emergency access mechanism called an Emergency Use Authorization (EUA). The EUA for this test is supported by the [employer] of Health and Human Service's (HHS's) declaration [...] consistent with SARS-CoV-2. Performed By: #### C [facility] #### [facility] [address] [place] [address] Dr. Carleen Garvey Vital Signs Date Time Vital Sign Value Performing Clinician Facility 12-30-2023 08:30-0400 Blood Pressure Location Frida Lue [facility] 12-30-2023 08:30-0400 Body temperature 97.88 [degF] Frida Lue [facility] 12-30-2023 08:30-0400 Diastolic blood pressure 72 mm[Hg] Frida Lue [facility] 12-30-2023 08:30-0400 Heart rate 79 /min Frida Lue [facility] 12-30-2023 08:30-0400 Respiratory rate 16 /min Frida Lue [facility] 12-30-2023 08:30-0400 Systolic blood pressure 116 mm[Hg] Frida Lue [facility] 03-28-2021 16:30-0400 Body height 182.88 cm Alejandro Santoro Other [facility] Other 03-28-2021 16:30-0400 Body mass index (BMI) [Ratio] 28.26 kg/m2 Alejandro Santoro Other [facility] Other 03-28-2021 16:30-0400 Body weight 94.53 kg Alejandro Santoro Other [facility] Other Encounters Encounter Date Encounter Type Care Provider Facility Start: 01-20-2024 ambulatory Frida M. Lue Facility:[facility] [place] Start: 01-13-2024 End: 01-13-2024 ambulatory Frida M. Lue Facility:[facility] [place] Start: 01-13-2024 End: 01-13-2024 Patient encounter procedure Frida Burch. Carmene [facility] Start: 01-08-2024 Telephone encounter Shelby Rockwell i, MD Work Phone: [address] [place] [address] Comment on above: Patient Request Start: 01-01-2024 ambulatory Frida Lue Facility:[facility] Start: 12-30-2023 End: 12-30-2023 ambulatory Frida M. Lue Facility:[facility] [place] Start: 12-30-2023 End: 12-30-2023 Patient encounter procedure Frida Alfaro [facility] Start: 05-06-2022 End: 05-06-[address] JANINE NEELY Facility:[facility] Start: 05-05-2022 End: 05-06-[address] JANINE NEELY Facility:[facility] Start: 07-01-2021 End: 07-01-[address] JANINE NEELY Facility:[facility] Start: 03-28-2021 End: 03-28-2021 ambulatory Alejandro Santoro Other [facility] Other Start: 03-28-2021 Office outpatient ne w 30 minutes Alejandro Santoro [facility] Procedures Date Procedure Procedure Detail Performing Clinician Start: 05-05-[address] DANII NEELY Comment on above: Performed By: #### P [facility] #### [facility] [address] [place] [address] Dr. Carleen Garvey Start: 05-25-2004 Colonoscopy Frida Moralesalena Tonsillectomy Frida Alfaro Plan of Treatment Date Care Activity Detail Author Start: 05-20-2024 End: 05-20-2024 Patient encounter procedure 05/20/2024 1:00 PM EST [facility] [address] [place] [address] Shelby Yoo MD [address] [place], [place] [id number] Establish care//New patient [facility] Comment on above: Establish care//New patient Start: 01-24-2024 Influenza vaccination Influenza Vacc ine (#1) [facility] Start: 05-25-2023 Advance Directive Discussion Advance Directive Discussion [facility] Start: 01-23-2023 Covid-19 Vaccine ( season) Covid-19 Vaccine ( season) [facility] Start: 2018 Pneumococcal Vaccine : 65+ (1 of 1 - PCV) Pneumococcal Vaccine: 65+ (1 of 1 - PCV) [facility] Start: 2013 RSV Vaccine (1 - 1-d ose 60+ series) RSV Vaccine (1 - 1-dose 60+ series) [facility] Start: 2003 Shingrix Vaccine (1 of 2) Shingrix Vaccine (1 of 2) [facility] Start: 1998 Diabetes Screening Diabetes Screenin g [facility] Start: 1998 Screening for malign ant neoplasm of colon [facility] Start: 02-24-1988 Lipid panel Lipid Screening [facility] Start: 02-24-1972 Urine microalbumin profile DTaP,Tdap,Td Vaccine (1 - Tdap) [facility] Start: 1971 Anxiety Screening Anxiety Screening [facility] Start: 1971 Depression Screening Depression Scre ening [facility] Start: 1971 Hepatitis C screening Hepatitis C Sc may [facility] Immunizations Immunization Date Immunization Notes Care Provider Raj archer 02-18-2023 influenza virus vacc ine, unspecified formulation Frida Lue [facility] 04-29-2022 SARS-CoV-2 (COVID-19 ) [id number] Frida Lue [facility] 03-19-2022 influenza virus vacc ine, unspecified formulation Frida Lue [facility] 03-28-2021 influenza virus vacc ine, unspecified formulation Frida Lue [facility] 08-28-2020 SARS-CoV-2 (COVID-19 ) mRNA BNT-162b2 vax Frida Lue [facility] 08-14-2020 SARS-CoV-2 (COVID-19 ) mRNA BNT-162b2 vax Frida Lue [facility] 03-09-2020 influenza virus vacc ine, unspecified formulation Frida Lue [facility] 03-09-2020 pneumococcal polysaccharide vaccine, 23 valent Frida Lue [facility] 01-29-2019 influenza virus vacc ine, unspecified formulation Frida Lue [facility] 01-29-2019 pneumococcal conjuga te vaccine, 13 valent Frida Lue [facility] 04-25-2018 influenza virus vacc ine, unspecified formulation Frida Lue [facility] 04-23-2017 influenza virus vacc ine, unspecified formulation Frida Alfaro [facility] Payers Date Payer Category Payer Medicare AETNA MEDICARE A ETNA MEDICARE PPO [id number] 2021-Present [phone] [address] [place] [address] PPO [id number] 1961 Medicare [id number] 1955 Unknown [id number] 1955 Unknown [id number] 1953 Unknown [id number] 1955 Unknown [id number] 1955 Unknown [id number] Medicare [id number] Unknown [id number] Social History Date Type Detail Facility Unknown if ever smoked [facility] Other Sex Assigned At [facility] Start: 12-30-2023 Tobacco smoking status Never [facility] unknown [facility] Start: 1955 Sex Assigned At Male [facility] Start: 01-08-2024 Gender identity Identifies as male gender (finding) [facility] Start: 01-08-2024 Sexual orientation Heterosexual (finding) [facility] Functional Status Date Assessment Result Facility 12-30-2023 Functional Status N/A [facility] Clinical Notes 03-28-2021 to 01-13-2024 Telephone Encounter - Elizabeth Bojorquez - 01/08/2024 11:40 AM EDTTelephone Encounter - Elizabeth Bojorquez - 01/08/2024 11:40 AM EDTTelephone Encounter - Graciela Vazquez PA-C - 01/08/2024 11:36 AM EDT Note Date & Type Note Facility 01-13-2024 Hospital Discharg e instructions Patient Education 01/13/2024 12:06:03 Clean Intermittent Catheterization, Male Clean Intermittent Catheterization, Male Clean intermittent catheterization (CIC) is a procedure to remove urine from the bladder by placing a small, flexible tube (catheter) into the bladder though the urethra. The urethra is a tube in the body that carries urine from the bladder out of the body. CIC may be done when: You cannot completely empty your bladder on your own. This may be due to a blockage in the bladder or urethra. Your bladder leaks urine. This may happen when the muscles or nerves near the bladder are not working normally, so the bladder overflows. Your health care provider will show you how to perform CIC and will help you to become comfortable performing this procedure at home. Your health care provider will also help you to get the home care supplies that are needed for this procedure. Supplies needed: Germ-free (sterile), water-based lubricant. A container for urine collection. You may also use the toilet to dispose of urine from the catheter. A catheter. Your health care provider will determine the best size for you. ?Use this catheter size: Clean gloves. Soap and water. Towel. How to perform this procedure: Most people need CIC at least 4 times per day to adequately empty the bladder. Your health care provider will tell you how often you should perform CIC. Number of times per day to perform CIC: To perform CIC, follow these steps: 1.Wash your hands with soap and water. If soap and water are not available, use hand preparatory technician. 2.Clean your penis with soap and water. Dry the tip of your penis completely. 3.Prepare the supplies that you will use during the procedure. Open the catheter package and lubricant. 4.Get in a comfortable position. Possible positions include: Sitting on a toilet, a chair, or the edge of a bed. Standing near a toilet. Lying down with your head raised on pillows and your knees pointing to the ceiling. You may wish to place a waterproof mat or pad under you. 5.If you are using a urine collection container, position it between your legs. 6.Urinate, if you are able. 7.Put on gloves. 8.Apply lubricant to about 2 inches (5 cm) of the tip of the catheter. 9.Set the catheter down on a clean, dry surface within reach. 10.Gently stretch your penis out from your body. Pull back any skin that covers the end of your penis (foreskin). Clean the end of your penis with medicated sterile swabs as told by your health care provider. 11.Hold your penis upward at a 45 60 degree angle. This helps to straighten the urethra. 12.Slowly insert the lubricated catheter straight into your urethra until urine flows freely. This is usually about 6 8 inches (15 20 cm). 13.When urine starts to flow freely, insert the catheter 1 inch (3 cm) more. Allow urine to drain into the toilet or the urine collection container. 14.When urine stops flowing, slowly remove the catheter. 15.Note the color, amount, and odor of the urine. 16.Measure your urine and note the amount, if told by your health care provider. 17.Discard the urine in the toilet. 18.Clean your penis using soap and water. 19.Move the foreskin back in place, if applicable. 20.If you are using a single-use catheter, discard the catheter and supplies. 21.Wash your hands with soap and water. 22.If you are using a reusable catheter, follow package instructions about how to clean the catheter after each use. How often should I perform this procedure? Do CIC to empty your bladder every 4 6 hours or as often as told by your health care provider. If you have symptoms of too much urine in your bladder (overdistension) and you are not able to urinate, perform CIC. Symptoms of overdistension may include: ?Restlessness. ?Sweating or chills. ?Headache. ?Flushed or pale skin. ?Bloated lower abdomen. What are the risks? Generally, this is a safe procedure, however problems may occur, including: Infection. Injury to the urethra. Irritation of the urethra. Follow these instructions at home General instructions Drink enough fluid to keep your urine pale yellow. Dispose of a multiple use catheter when it becomes dry, brittle, or cloudy. This usually happens after you use the catheter for 1 week. Avoid caffeine. Caffeine may make you need to urinate more frequently and more urgently. When traveling, bring extra supplies with you in case of delays. Keep supplies with you in a place that you can access easily. If traveling by plane: ?Make sure that the lubricant in your carry-on bag is less than 3.4 ounces (100 mL). ?Use a single-use catheter. It may be difficult to clean a reusable catheter in a small bathroom. Take kzpw-inl-obtgvrp and prescription medicines only as told by your health care provider. Keep all follow-up visits as told by your health care provider. This is important. Contact a health care provider if you: Have difficulty performing CIC. Have urine leaking during CIC. Have: ?Dark or cloudy urine. ?Blood in your urine or in your catheter. ?A change in the smell of your urine or discharge. ?A burning feeling while you urinate. Feel nauseous or you vomit. Have pain in your abdomen, your back, or your sides below your ribs. Have swelling or redness around the opening of your urethra. Develop a rash or sores on your skin. Get help right away if you have: A fever. Symptoms that do not go away after 3 days. Symptoms that suddenly get worse. Severe pain. A decrease in the amount of urine that drains from your bladder. Summary Clean intermittent catheterization (CIC) is a procedure to remove urine from the bladder by placing a small, flexible tube (catheter) into the bladder though the urethra. Your health care provider will show you how to perform CIC and will help you to become comfortable performing this procedure at home. Most people need CIC at least 4 times per day to adequately empty the bladder. This information is not intended to replace advice given to you by your health care provider. Make sure you discuss any questions you have with your health care provider. Document Revised: 03/17/2022 Document Reviewed: 03/17/2022 fav.or.it Patient Education 2022 Smackages. Follow Up Care 12/30/2023 12:03:24 With:Dominic ALBRIGHT, SHANNA Frances, URO Address: When: Unknown [facility] 01-13-2024 Note Patient Education Urology Clean Intermittent Catheterization, Male Clean intermittent catheterization (CIC) is a procedure to remove urine from the bladder by placing a small, flexible tube (catheter) into the bladder though the urethra. The urethra is a tube in the body that carries urine from the bladder out of the body. CIC may be done when: ? You cannot completely empty your bladder on your own. This may be due to a blockage in the bladder or urethra. ? Your bladder leaks urine. This may happen when the muscles or nerves near the bladder are not working normally, so the bladder overflows. Your health care provider will show you how to perform CIC and will help you to become comfortable performing this procedure at home. Your health care provider will also help you to get the home care supplies that are needed for this procedure. Supplies needed: ? Germ-free (sterile), water-based lubricant. ? A container for urine collection. You may also use the toilet to dispose of urine from the catheter. ? A catheter. Your health care provider will determine the best size for you. ? Use this catheter size: ? Clean gloves. ? Soap and water. ? Towel. How to perform this procedure: Most people need CIC at least 4 times per day to adequately empty the bladder. Your health care provider will tell you how often you should perform CIC. ? Number of times per day to perform CIC: To perform CIC, follow these steps: 1. Wash your hands with soap and water. If soap and water are not available, use hand preparatory technician. 2. Clean your penis with soap and water. Dry the tip of your penis completely. 3. Prepare the supplies that you will use during the procedure. Open the catheter package and lubricant. 4. Get in a comfortable position. Possible positions include: ? Sitting on a toilet, a chair, or the edge of a bed. ? Standing near a toilet. ? Lying down with your head raised on pillows and your knees pointing to the ceiling. You may wish to place a waterproof mat or pad under you. 5. If you are using a urine collection container, position it between your legs. 6. Urinate, if you are able. 7. Put on gloves. 8. Apply lubricant to about 2 inches (5 cm) of the tip of the catheter. 9. Set the catheter down on a clean, dry surface within reach. 10. Gently stretch your penis out from your body. Pull back any skin that covers the end of your penis (foreskin). Clean the end of your penis with medicated sterile swabs as told by your health care provider. 11. Hold your penis upward at a 45?60 degree angle. This helps to straighten the urethra. 12. Slowly insert the lubricated catheter straight into your urethra until urine flows freely. This is usually about 6?8 inches (15?20 cm). 13. When urine starts to flow freely, insert the catheter 1 inch (3 cm) more. Allow urine to drain into the toilet or the urine collection container. 14. When urine stops flowing, slowly remove the catheter. 15. Note the color, amount, and odor of the urine. 16. Measure your urine and note the amount, if told by your health care provider. 17. Discard the urine in the toilet. 18. Clean your penis using soap and water. 19. Move the foreskin back in place, if applicable. 20. If you are using a single-use catheter, discard the catheter and supplies. 21. Wash your hands with soap and water. 22. If you are using a reusable catheter, follow package instructions about how to clean the catheter after each use. How often should I perform this procedure? ? Do CIC to empty your bladder every 4?6 hours or as often as told by your health care provider. ? If you have symptoms of too much urine in your bladder (overdistension) and you are not able to urinate, perform CIC. Symptoms of overdistension may include: ? Restlessness. ? Sweating or chills. ? Headache. ? Flushed or pale skin. ? Bloated lower abdomen. What are the risks? Generally, this is a safe procedure, however problems may occur, including: ? Infection. ? Injury to the urethra. ? Irritation of the urethra. Follow these instructions at home General instructions ? Drink enough fluid to keep your urine pale yellow. ? Dispose of a multiple use catheter when it becomes dry, brittle, or cloudy. This usually happens after you use the catheter for 1 week. ? Avoid caffeine. Caffeine may make you need to urinate more frequently and more urgently. ? When traveling, bring extra supplies with you in case of delays. Keep supplies with you in a place that you can access easily. If traveling by plane: ? Make sure that the lubricant in your carry-on bag is less than 3.4 ounces (100 mL). ? Use a single-use catheter. It may be difficult to clean a reusable catheter in a small bathroom. ? Take zdac-vqs-nywrgnq and prescription medicines onl (more content not included)... [facility] 01-08-2024 Telephone encounter Note Patient Scheduled for Establish Care with Shelby Yoo MD on 05/20/24 at 1:00 PM. [facility] 01-08-2024 Miscellaneous Notes Patient Scheduled for Establish Care with Shelby [...] calling: self Call patient at: on cell [phone] (home) [phone] (cell) Was an appointment scheduled: No Closing statement: Results or non-symptom based questions: Thank you for calling [facility], your call will be returned within the next business day. Naomy Umana documented in this encounter [facility] 01-08-2024 Telephone encounter Note Yes, he can establish with Dr. Yoo. Please arrange for establish care visit. If patient has acute concerns please schedule with me for acute visit prior to establish care visit. Thanks, Graciela Vazquez PA-C [facility] Work Phone: 01-08-2024 Telephone encounter Note Please advise if willing to take spouse of current patient (Ida Dale) [facility] 01-08-2024 Telephone encounter Note Tyler is calling Shelby Yoo MD today stating that his Ida SMITH 54 is a patient of Dr[address] Yoo and wants to ask if she will take him on as a new patient. Please advise. Patient has been identified by name and birthdate. Duration of symptoms: N/A Person calling: self Call patient at: on cell [phone] (home) [phone] (cell) Was an appointment scheduled: No Closing statement: Results or non-symptom based questions: Thank you for calling [facility], your call will be returned within the next business day. Naomy Umana [facility] 12-30-2023 Hospital Discharg e instructions Patient Education [...] Follow these instructions at home: Medicines Take kssn-cog-wrngimt and prescription medicines only as told by [...] provider. Document Revised: 01/30/2021 Document Reviewed: 01/30/2021 fav.or.it Patient Education 2022 Smackages. 12/30/2023 09:00:47 Kidney Stones, Pvqa-ul-Bnsr Kidney Stones Kidney stones are rock-like masses [...] Follow these instructions at home: Medicines Take nxqr-mfc-itmdepf and prescription medicines only as told by [...] provider. Document Revised: 01/13/2022 Document Reviewed: 01/13/2022 fav.or.it Patient Education 2022 Smackages. Follow Up Care 12/17/2023 13:25:47 With:Dominic ALBRIGHT, SHANNA Frances, URO Address: [address] [place] [address]- [phone] When: Unknown [facility] 12-30-2023 Note Patient Education Urology Acute [...] these instructions at home: Medicines ? Take kzrl-lsl-uuxfysy and prescription medicines only as told by [...] provider. Document Revised: 01/30/2021 Document Reviewed: 01/30/2021 fav.or.it Patient Education ? 2022 Smackages. Kidney Stones Kidney stones are rock-like masses that form inside of the kidneys. Kidneys are organs that make pee (urine). A kidney stone may move into other parts of the urinary tract, including: ? The tub (more content not included)... [facility] 03-28-2021 Evaluation note Encounter Date Diagnosis Assessment [...] We discussed gentle range of motion exercises. [facility] Other Evaluation + Plan note Future Appointments Appointment Date:01/13/2024 08:00:00 AM Scheduled Provider: Location:[facility] Appointment Type:URO Nurse Visit [facility] History general Narrative - Reported* Type Description Date Medical History Hypercholesterolemia Medical History Benign essential HTN Surgical History tonsillectomy Surgical History colonoscopy [facility] Other Hospital course Narrative No data available for this section [facility] progress note No data available for this section [facility] Summary Purpose Family History No Family History Records Found No data available for this section No Family History Records Found No data available for this section No Family History Records Found Advance Directives No Advanced Directives Records FoundNo Advanced Directives Records FoundNo Advanced Directives Records Found Additional Source Comments REASON FOR VISIT (unrecogniz ed section and content) Reason Comments Patient Request (unrecognized sect ion and content) No Status Records FoundNo Status Records FoundNo Status Records Found INFORMATION SOURCE (unrecogn ized section and content) DATE CREATED AUTHOR 05/16/2022 [facility] DATE CREATED AUTHOR AUTHOR'S ORGANIZ ATION 01/10/2024 [facility] DATE CREATED AUTHOR AUTHOR'S ORGANIZ ATION 01/14/2024 [facility] Patient Care team informatio n (unrecognized section and content) Personnel Name: Janine Neely MD Address: Address: [address] [place] [address] Personnel Name: Janine Neely MD Address: Address: [address] [place] [address] Source Comments (unrecognize d section and content) In the event this informatio n is protected by the Federal Confidentiality of Alcohol and Drug Abuse Patient Records regulations: The Federal rules restrict any use of the information to criminally investigate or prosecute any alcohol or drug abuse patient.[facility] FOR RECORDS PERTAINING TO PATIENTS WHO ARE [...] BE BASED ON THE PRIMARY CLINICAL RECORDS. [facility]. provides no warranty or guarantee of the accuracy or completeness of information in this document.
== END 2024-01-15 08:01 | disposition home or self-care (01) ==
LOC: CT 08:00
PROVIDERS: PCP Family Medicine; Visit Provider Urology
DX: R33.9 Retention of urine, unspecified (principal); N13.2 Hydronephrosis with renal and ureteral calculous obstruction; N40.1 Benign prostatic hyperplasia with lower urinary tract symptoms; K80.20 Calculus of gallbladder without cholecystitis without obstruction
CPT/HCPCS: 74176